=== PATIENT | female | born 1980 | race Caucasian/White ===

== ENCOUNTER 2019-12-14 14:05 | Emergency (ER) | payer OTHER ==
[2019-12-14 15:04] VITALS: BP 124/60; PULSE 72; RESP 18; TEMP 97.7
[2019-12-14] MEDS ORDERED: METOCLOPRAMIDE 10 MG TAB PO STA (15:50)
[2019-12-14] MEDS ORDERED: KETOROLAC 60 MG/2 ML VIAL IM STA (15:50)
[2019-12-14] MEDS ORDERED: diphenhydrAMINE 50 MG CAP PO STA (15:50)
--- NOTE | 2019-12-14 16:13 | ED ---
General Adult HPI - General Chief complaint: Headache Stated complaint: Cough and headache Time Seen by Provider: 12/14/19 15:00 Source: patient, family Mode of arrival: ambulatory Limitations: no limitations - History of Present Illness Initial comments: The patient is a 39-year-old female with past medical history of anxiety and depression who presents to the emergency department with reported headache, nonproductive cough and loss of appetite for the past 2 days. Patient reports that her headache is in the center for for head without radiation that is graded as a 6 out of 10. She has been taking Tylenol at home for her pain. She denies any visual changes. No unilateral numbness or weakness. Denies neck pain or stiffness. No fevers at home. No reported confusion from son at bedside. Denies photophobia. Patient denies hemoptysis. No shortness of breath or chest pain. Admits to nausea without vomiting. Patient's son tested positive for cocaine yesterday and therefore she is concerned that this may be the etiology of her symptoms. She is requesting testing at this time. Denies concern for . There are no other alleviating, precipitating or modifying factors - Related Data Home Medications Medication Instructions Recorded Confirmed Acetaminophen Tab [Tylenol] 650 mg PO Q4H PRN 12/14/19 12/14/19 Dm/Acetaminophen/Doxylamine [Vicks 30 ml PO Q6H PRN 12/14/19 12/14/19 Nyquil Cold-Flu Liquid] Phenylephrine/Dm/Acetaminop/GG 30 ml PO Q6H PRN 12/14/19 12/14/19 [Vicks Dayquil Severe Cold-Flu] Allergies Allergy/AdvReac Type Severity Reaction Status Date / Time No Known Allergies Allergy Verified 12/14/19 16:09 Review of Systems ROS Statement: Those systems with pertinent positive or pertinent negative responses have been documented in the HPI. ROS Other: All systems not noted in ROS Statement are negative. Past Medical History Past Medical History: No Reported History History of Any Multi-Drug Resistant Organisms: None Reported Past Surgical History: Section, Orthopedic Surgery, Tonsillectomy Past Psychological History: Anxiety, Depression Smoking Status: Current every day smoker Past Alcohol Use History: None Reported Past Drug Use History: Marijuana General Exam Limitations: no limitations General appearance: alert, in no apparent distress Head exam: Present: atraumatic, normocephalic, normal inspection Eye exam: Present: normal appearance, PERRL, EOMI. Absent: scleral icterus, conjunctival injection, periorbital swelling ENT exam: Present: normal exam, mucous membranes moist Neck exam: Present: normal inspection. Absent: tenderness, meningismus, lymphadenopathy Respiratory exam: Present: normal lung sounds bilaterally. Absent: respiratory distress, wheezes, rales, rhonchi, stridor Cardiovascular Exam: Present: regular rate, normal rhythm, normal heart sounds. Absent: systolic murmur, diastolic murmur, rubs, gallop, clicks GI/Abdominal exam: Present: soft, normal bowel sounds. Absent: distended, tenderness, guarding, rebound, rigid Extremities exam: Present: normal inspection, full ROM, normal capillary refill. Absent: tenderness, pedal edema, joint swelling, calf tenderness Back exam: Present: normal inspection Neurological exam: Present: alert, oriented X3, CN II-XII intact Psychiatric exam: Present: normal affect, normal mood Skin exam: Present: warm, dry, intact, normal color. Absent: rash Course Vital Signs 12/14/19 14:57 Temperature 97.7 F Pulse Rate 72 Respiratory 18 Rate Blood Pressure 124/60 O2 Sat by Pulse 97 Oximetry Medical Decision Making - Medical Decision Making Upon arrival the patient was placed in room 22. A thorough history and physical exam was performed. A portable chest x-rays performed. Patient is swabbed for covid. She is given 30 mg IM Toradol, 25 mg of Benadryl and 10 mg of Reglan. Patient has no meningeal signs. No increased work of breathing. Patient is stable for discharge home at this time. She is to follow up with her patient in 2-4 days for reevaluation. Return to the emergency room for any new or worsening symptoms. We will call her with any positive results. Patient was in agreement with the treatment plan and she was discharged in stable condition - Lab Data Lab Results 12/14/19 Range/Units 16:28 Coronavirus (PCR) Detected H (Not Detected) Disposition Clinical Impression: Headache, Cough Disposition: HOME SELF-CARE Condition: Stable Instructions (If sedation given, give patient instructions): Acute Headache (ED) Additional Instructions: Please follow-up with your primary care doctor in 2-4 days. We will call you with positive results. Return to the emergency room for any new or worsening symptoms Is patient prescribed a controlled substance at d/c from ED?: No Referrals: None,Stated [Primary Care Provider] - 1-2 days Time of Disposition: 16:17
--- NOTE | 2019-12-14 16:15 | XR ---
EXAMINATION TYPE: XR chest 1V portable DATE OF EXAM: 12/14/2019 Comparison: None Clinical History: 39-year-old female cough Findings: Large patient body habitus. Heart upper limits of normal in size. Aorta and pulmonary vasculature wit hin normal limits. No consolidation or pleural effusion seen. Impression: No acute cardiopulmonary process.
== END 2019-12-14 16:41 | disposition home or self-care (01) ==
LOC: EC 14:05
DX: R51 Headache (principal); R05 Cough; R11.0 Nausea; Z20.828 Contact with and (suspected) exposure to other viral communicable diseases; F17.200 Nicotine dependence, unspecified, uncomplicated
CPT/HCPCS: 99284; 96372; 71045; U0003; J1885

== ENCOUNTER 2020-03-30 20:20 | Emergency (ER) | payer OTHER ==
[2020-03-30 20:43] VITALS: BP 124/83; PULSE 98; RESP 18; TEMP 98.3
[2020-03-30 21:51] LABS: ALT 17 U/L (4-34); AST 21 U/L (14-36); African American GFR (CKD) >90 (>60 ml/min/1.73 sqM); Albumin 3.6 g/dL (3.5-5.0); Alkaline Phosphatase 64 U/L (38-126); Anion Gap 4 mmol/L; Blood Urea Nitrogen 20 mg/dL (7-17); Calcium 9.2 mg/dL (8.4-10.2); Carbon Dioxide 30 mmol/L (22-30); Chloride 105 mmol/L (98-107); Glucose 91 mg/dL (74-99); Non-African American GFR(CKD) 88 (>60 ml/min/1.73 sqM); Potassium 4.1 mmol/L (3.5-5.1); Sodium 139 mmol/L (137-145); Total Bilirubin 0.2 mg/dL (0.2-1.3); Total Protein 6.6 g/dL (6.3-8.2)
[2020-03-30 21:58] LABS: Basophils # (A) 0.1 k/uL (0-0.2); Basophils % (A) 1 %; Eosinophils # (A) 0.5 k/uL (0-0.7); Eosinophils % (A) 5 %; HCT 41.5 % (34.0-46.0); Hypochromasia Slight; Lymphocytes % (A) 18 %; MCH 27.4 pg (25.0-35.0); MCHC 31.4 g/dL (31.0-37.0); MCV 87.3 fL (80.0-100.0); Mean Platelet Volume 6.7; Monocytes # (A) 0.6 k/uL (0-1.0); Monocytes % (A) 5 %; Neutrophils # (A) 7.6 k/uL (1.3-7.7); Neutrophils % (A) 69 %; Platelet Count 382 k/uL (150-450); RBC 4.75 m/uL (3.80-5.40); RDW 14.9 % (11.5-15.5)
--- NOTE | 2020-03-30 22:03 | ED ---
ENT HPI - General Chief complaint: ENT Stated complaint: Rash on head, back pain Time Seen by Provider: 03/30/20 20:45 Source: patient Mode of arrival: ambulatory Limitations: no limitations - History of Present Illness Initial comments: 39 year old female presenting today for chief complaint of itchy scalp bumps on neck. Patient states that she has had itchy scalp for over a week she states she is alsothe back of her neck. She states they're not red. She denies fevers, night sweats, weight loss, denies sore throat or dental pain. Denies additional complaints. patient states that she cannot tolerate the scalp itching anymore. Patient itzel additional complaints. Upon arrival patient appears well nontoxic in no acute distress. - Related Data Home Medications Medication Instructions Recorded Confirmed Acetaminophen Tab [Tylenol] 650 mg PO Q4H PRN 12/14/19 12/14/19 Dm/Acetaminophen/Doxylamine [Vicks 30 ml PO Q6H PRN 12/14/19 12/14/19 Nyquil Cold-Flu Liquid] Phenylephrine/Dm/Acetaminop/GG 30 ml PO Q6H PRN 12/14/19 12/14/19 [Vicks Dayquil Severe Cold-Flu] Previous Rx's Medication Instructions Recorded Permethrin [Nix] 60 ml TP ONCE 1 Days #60 ml 03/30/20 Allergies Allergy/AdvReac Type Severity Reaction Status Date / Time No Known Allergies Allergy Verified 03/30/20 20:43 Review of Systems ROS Statement: Those systems with pertinent positive or pertinent negative responses have been documented in the HPI. ROS Other: All systems not noted in ROS Statement are negative. Past Medical History Past Medical History: No Reported History History of Any Multi-Drug Resistant Organisms: None Reported Past Surgical History: Section, Orthopedic Surgery, Tonsillectomy Past Psychological History: Anxiety, Depression, PTSD Smoking Status: Current every day smoker Past Alcohol Use History: None Reported Past Drug Use History: Marijuana General Exam - General Exam Comments Initial Comments: General: The patient is awake and alert, in no distress Eye: +3 mm pupils are equal, round and reactive to light, extra-ocular movements are intact. No nystagmus. There is normal conjunctiva bilaterally. No signs of icterus. Ears, nose, mouth and throat: There are moist mucous membranes and no oral lesions. Neck: The neck is supple, there is no tenderness or JVD. Palpable enlarged posterior cerivcal chain lymphadenopathy Cardiovascular: There is a regular rate and rhythm. No murmur, rub or gallop is appreciated. Respiratory: Lungs are clear to auscultation, respirations are non-labored, breath sounds are equal. No wheezes, stridor, rales, or rhonchi. Gastrointestinal: Soft, non-distended, non-tender abdomen without masses or organomegaly noted. There is no rebound or guarding present. Musculoskeletal: Normal ROM, no tenderness. Strength 5/5. Sensation intact. Radial pulses equal bilaterally 2+. Neurological: A&O x 3. CN II-XII intact grossly, There are no obvious motor or sensory deficits. Coordination appears grossly intact. Speech is normal. Skin: Skin is warm and dry and no rashes or lesions are noted. Infestations of lice with nits present on exam, extensive Psychiatric: Cooperative, appropriate mood & affect, normal judgment. Limitations: no limitations Course Vital Signs 03/30/20 20:40 Temperature 98.3 F Pulse Rate 98 Respiratory 18 Rate Blood Pressure 124/83 O2 Sat by Pulse 95 Oximetry Medical Decision Making - Medical Decision Making Mild leukocytosis. Significant infestation of lice. Some excoriation noted. No cellulitic process appreciated. Oral exam unremarkable. I feel lymphadenopathy most likely secondary to the infestation but did recommend patient f/u with PCP outpatient for monitoring of lymph nodes. Patient verbalized understanding, case discussed with Dr. Mercer who is agreeable to care plan and discharge. - Lab Data Result diagrams: 03/30/20 21:22 03/30/20 21:22 Lab Results 03/30/20 03/30/20 Range/Units 21:22 21:22 WBC 11.0 H (3.8-10.6) k/uL RBC 4.75 (3.80-5.40) m/uL Hgb 13.0 (11.4-16.0) gm/dL Hct 41.5 (34.0-46.0) % MCV 87.3 (80.0-100.0) fL MCH 27.4 (25.0-35.0) pg MCHC 31.4 (31.0-37.0) g/dL RDW 14.9 (11.5-15.5) % Plt Count 382 (150-450) k/uL Neutrophils % 69 % Lymphocytes % 18 % Monocytes % 5 % Eosinophils % 5 % Basophils % 1 % Neutrophils # 7.6 (1.3-7.7) k/uL Lymphocytes # 2.0 (1.0-4.8) k/uL Monocytes # 0.6 (0-1.0) k/uL Eosinophils # 0.5 (0-0.7) k/uL Basophils # 0.1 (0-0.2) k/uL Hypochromasia Slight Sodium 139 (137-145) mmol/L Potassium 4.1 (3.5-5.1) mmol/L Chloride 105 (98-107) mmol/L Carbon Dioxide 30 (22-30) mmol/L Anion Gap 4 mmol/L BUN 20 H (7-17) mg/dL Creatinine 0.83 (0.52-1.04) mg/dL Est GFR (CKD-EPI)AfAm >90 (>60 ml/min/1.73 sqM) Est GFR (CKD-EPI)NonAf 88 (>60 ml/min/1.73 sqM) Glucose 91 (74-99) mg/dL Calcium 9.2 (8.4-10.2) mg/dL Total Bilirubin 0.2 (0.2-1.3) mg/dL AST 21 (14-36) U/L ALT 17 (4-34) U/L Alkaline Phosphatase 64 (38-126) U/L Total Protein 6.6 (6.3-8.2) g/dL Albumin 3.6 (3.5-5.0) g/dL Disposition Clinical Impression: Lice infestation, Lymphadenopathy Disposition: HOME SELF-CARE Condition: Good Instructions (If sedation given, give patient instructions): Pediculosis (ED), Lymphadenopathy (ED) Additional Instructions: Please use medication as discussed. Please follow-up with family doctor in the next 2 days for enlarged lymph nodes.. Please return to emergency room if the symptoms increase or worsen or for any other concerns. Prescriptions: Permethrin [Nix] 60 ml TP ONCE 1 Days #60 ml Is patient prescribed a controlled substance at d/c from ED?: No Referrals: None,Stated [Primary Care Provider] - 1-[address] [facility] - [facility]-2 days Time of Disposition: 22:03
== END 2020-03-30 22:21 | disposition home or self-care (01) ==
LOC: EC 20:20
DX: B85.1 Pediculosis due to Pediculus humanus corporis (principal); R59.1 Generalized enlarged lymph nodes; F17.200 Nicotine dependence, unspecified, uncomplicated
CPT/HCPCS: 36415; 80053; 85025; 99283

== ENCOUNTER 2020-04-18 17:53 | Emergency (ER) | payer OTHER ==
[2020-04-18 17:57] VITALS: BP 116/80; PULSE 90; RESP 18; TEMP 98
[2020-04-18] MEDS ORDERED: SULFAMETH-TMP DS STARTER PACK 2 TAB BTL PO STA (19:01)
[2020-04-18] MEDS ORDERED: ACET/COD 300 MG/30 MG STARTER PACK 6 TAB BTL PO STA (19:01)
--- NOTE | 2020-04-18 19:02 | ED ---
General Adult HPI - General Chief complaint: Skin/Abscess/Foreign Body Stated complaint: Abcess on stomach Time Seen by Provider: 04/18/20 18:40 Source: patient, RN notes reviewed, old records reviewed Mode of arrival: ambulatory Limitations: no limitations - History of Present Illness Initial comments: 39-year-old female presents emergency department today for evaluation she complaint of abscess over the lower left abdomen. She reports noticed this area for week. She was related to her clothes rubbing on her. Patient denies any fevers or chills. She reports areas were red, warm and tender. She denies history of MRSA. - Related Data Home Medications Medication Instructions Recorded Confirmed Acetaminophen Tab [Tylenol] 650 mg PO Q4H PRN 12/14/19 12/14/19 Dm/Acetaminophen/Doxylamine [Vicks 30 ml PO Q6H PRN 12/14/19 12/14/19 Nyquil Cold-Flu Liquid] Phenylephrine/Dm/Acetaminop/GG 30 ml PO Q6H PRN 12/14/19 12/14/19 [Vicks Dayquil Severe Cold-Flu] Previous Rx's Medication Instructions Recorded Permethrin [Nix] 60 ml TP ONCE 1 Days #60 ml 03/30/20 Sulfamethox-Tmp 800-160Mg [Bactrim 1 tab PO Q12HR #20 tab 04/18/20 DS 800-160 mg] Allergies Allergy/AdvReac Type Severity Reaction Status Date / Time No Known Allergies Allergy Verified 04/18/20 17:57 Review of Systems ROS Statement: Those systems with pertinent positive or pertinent negative responses have been documented in the HPI. ROS Other: All systems not noted in ROS Statement are negative. Past Medical History Past Medical History: No Reported History History of Any Multi-Drug Resistant Organisms: None Reported Past Surgical History: Section, Orthopedic Surgery, Tonsillectomy Past Psychological History: Anxiety, Depression, PTSD Smoking Status: Current every day smoker Past Alcohol Use History: None Reported Past Drug Use History: Marijuana General Exam - General Exam Comments Initial Comments: 39-year-old female. Alert and oriented 3. No distress Limitations: no limitations General appearance: alert, in no apparent distress Head exam: Present: atraumatic, normocephalic, normal inspection Eye exam: Present: normal appearance, PERRL, EOMI. Absent: scleral icterus, conjunctival injection, periorbital swelling ENT exam: Present: normal exam, mucous membranes moist Neck exam: Present: normal inspection. Absent: tenderness, meningismus, lymphadenopathy Respiratory exam: Present: normal lung sounds bilaterally. Absent: respiratory distress, wheezes, rales, rhonchi, stridor Cardiovascular Exam: Present: regular rate, normal rhythm, normal heart sounds. Absent: systolic murmur, diastolic murmur, rubs, gallop, clicks GI/Abdominal exam: Present: soft, normal bowel sounds, other (Is protuberant abdomen. His evidence of an area of erythema and abscess on the left lower quadrant of the abdomen. There is superficial.). Absent: distended, tenderness, guarding, rebound, rigid Extremities exam: Present: normal inspection, full ROM, normal capillary refill. Absent: tenderness, pedal edema, joint swelling, calf tenderness Back exam: Present: normal inspection Neurological exam: Present: alert, oriented X3, CN II-XII intact Psychiatric exam: Present: normal affect, normal mood Skin exam: Present: warm, dry, intact, normal color. Absent: rash Course Vital Signs 04/18/20 17:55 Temperature 98.0 F Pulse Rate 90 Respiratory 18 Rate Blood Pressure 116/80 O2 Sat by Pulse 99 Oximetry Procedures - Incision & Drainage Consent Obtained: verbal consent Indication: Abscess Site: abdomen (Lower quadrant) Size (cm): 1 Anesthetic Used: lidocaine 1% I&D Cleaning Method: Alcohol Wipe Sterile Field Used?: Yes Scalpel Used: #11 I&D Drainage Obtained: Pus, Blood Packing: Iodoform Culture Obtained?: Yes Patient Tolerated Procedure: well, no complications Medical Decision Making - Medical Decision Making 39-year-old female Patient returns today for complaints of abscess of her left abdomen. She had incision and drainage culture obtained. Presently 3 mL of fluid was removed. Discussed putting the Patient on Bactrim and discussed with area of redness or swelling worsens return to the ER for reevaluation. Patient tolerated the procedure well. Disposition Clinical Impression: Abdominal wall abscess Disposition: HOME SELF-CARE Condition: Good Instructions (If sedation given, give patient instructions): Abscess (ED) Additional Instructions: Please use medication as discussed. Please follow up with family doctor if symptoms have not improved over the next two days. Please return to the emergency room if your symptoms increase or worsen or for any other concerns. Prescriptions: Sulfamethox-Tmp 800-160Mg [Bactrim DS 800-160 mg] 1 tab PO Q12HR #20 tab Is patient prescribed a controlled substance at d/c from ED?: No Referrals: None,Stated [Primary Care Provider] - 1-2 days Time of Disposition: 19:02
== END 2020-04-18 19:09 | disposition home or self-care (01) ==
LOC: EC 17:53
DX: L02.211 Cutaneous abscess of abdominal wall (principal); F17.200 Nicotine dependence, unspecified, uncomplicated
CPT/HCPCS: 10060; 87070; 87077; 87186; 87205; 99284

== ENCOUNTER 2020-11-07 16:47 | Emergency (ER) | payer OTHER ==
[2020-11-07] MEDS ORDERED: KETOROLAC 15 MG/ML 1 ML VIAL IVP STA (17:32)
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
[2020-11-07 18:28] LABS: Basophils % (A) 0 %; Eosinophils # (A) 0.2 k/uL (0-0.7); Eosinophils % (A) 2 %; HCT 40.9 % (34.0-46.0); HGB 13.7 gm/dL (11.4-16.0); Lymphocytes # (A) 1.9 k/uL (1.0-4.8); Lymphocytes % (A) 16 %; MCH 28.5 pg (25.0-35.0); MCHC 33.5 g/dL (31.0-37.0); MCV 85.2 fL (80.0-100.0); Monocytes # (A) 0.5 k/uL (0-1.0); Monocytes % (A) 5 %; Neutrophils # (A) 8.9 k/uL (1.3-7.7); Neutrophils % (A) 76 %; Platelet Count 333 k/uL (150-450); RBC 4.81 m/uL (3.80-5.40); RDW 13.2 % (11.5-15.5); WBC 11.8 k/uL (3.8-10.6)
[2020-11-07 18:39] LABS: ALT 23 U/L (4-34); AST 41 U/L (14-36); African American GFR (CKD) >90 (>60 ml/min/1.73 sqM); Albumin 4.1 g/dL (3.5-5.0); Alkaline Phosphatase 76 U/L (38-126); Anion Gap 6 mmol/L; Blood Urea Nitrogen 15 mg/dL (7-17); Calcium 9.4 mg/dL (8.4-10.2); Carbon Dioxide 28 mmol/L (22-30); Chloride 105 mmol/L (98-107); Glucose 82 mg/dL (74-99); Lipase 94 U/L (23-300); Non-African American GFR(CKD) >90 (>60 ml/min/1.73 sqM); Sodium 139 mmol/L (137-145); Total Bilirubin 0.7 mg/dL (0.2-1.3); Total Protein 7.4 g/dL (6.3-8.2)
[2020-11-07 18:43] LABS: Potassium 4.8 mmol/L (3.5-5.1)
--- NOTE | 2020-11-07 18:44 | XR ---
EXAMINATION TYPE: XR chest 2V DATE OF EXAM: 11/07/2020 COMPARISON: 12/14/2019. HISTORY: Sternal pain and cough. TECHNIQUE: Frontal and lateral views of the chest are obtained. FINDINGS: There is no focal air space opacity, pleural effusion, or pneumothorax seen. The cardiac silhouette size is within normal limits. The osseous structures are intact. IMPRESSION: No acute cardiopulmonary process.
[2020-11-07 18:45] LABS: INR 0.9 (<1.2); Partial Thromboplastin Time 22.8 sec (22.0-30.0); Prothrombin Time 9.9 sec (9.0-12.0)
[2020-11-07 19:03] LABS: D-Dimer 1.07 mg/L FEU (<0.60)
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
[2020-11-07 20:09] VITALS: BP 165/80; PULSE 100; RESP 17; TEMP 97.5
== END 2020-11-07 20:10 | disposition home or self-care (01) ==
LOC: EC 16:47
DX: S20.219A Contusion of unspecified front wall of thorax, initial encounter (principal); F41.9 Anxiety disorder, unspecified; F32.9 Major depressive disorder, single episode, unspecified; F12.90 Cannabis use, unspecified, uncomplicated; F17.200 Nicotine dependence, unspecified, uncomplicated; Z79.1 Long term (current) use of non-steroidal anti-inflammatories (NSAID); X58.XXXA Exposure to other specified factors, initial encounter; Y93.I9 Activity, other involving external motion
CPT/HCPCS: 36415; 93005; 85379; 80053; 83690; 83735; 84484; 85025; 85610; 85730; 71120; 71046; 71275; 99285; 96374; J1885; Q9967

== ENCOUNTER 2024-01-04 04:55 | Inpatient (IN) | payer OTHER ==
--- NOTE | 2024-01-04 05:42 | ED ---
General Adult HPI - General Chief complaint: Psychiatric Symptoms Stated complaint: Suicidal ideations Time Seen by Provider: 01/04/24 04:59 Source: patient Mode of arrival: ambulatory Limitations: no limitations - History of Present Illness Initial comments: Dictation was produced using [employer] dictation software. please excuse any grammatical, word or spelling errors. Chief Complaint: 43-year-old homeless female presents emergency department for suicidal ideation History of Present Illness: Patient is a 43-year-old homeless female states that she is here today for feeling suicidal. She has history of illicit drug use. States that she has been depressed because of the way her life has been going recently. She states that she wishes she could end it all. Patient denies any homicidal ideation. She does not have any plan. The ROS documented in this emergency department record has been reviewed and confirmed by me. Those systems with pertinent positive or negative responses have been documented in the HPI. All other systems are other negative and/or noncontributory. - Related Data Previous Rx's Medication Instructions Recorded Escitalopram [Lexapro] 10 mg PO HS 30 Days #30 tab 01/08/24 Nicotine Gum (Polacrilex) 2 mg BUCCAL Q4HR PRN 30 Days #180 01/08/24 [Nicorette] pieceofgum lamoTRIgine [LaMICtal] 25 mg PO HS 30 Days #30 tab 01/08/24 traZODone HCL [Desyrel] 25 mg PO HS PRN 30 Days #15 tab 01/08/24 Allergies Allergy/AdvReac Type Severity Reaction Status Date / Time No Known Allergies Allergy Verified 01/04/24 09:47 Review of Systems ROS Statement: Those systems with pertinent positive or pertinent negative responses have been documented in the HPI. ROS Other: All systems not noted in ROS Statement are negative. Past Medical History Past Medical History: No Reported History History of Any Multi-Drug Resistant Organisms: None Reported Past Surgical History: Section, Orthopedic Surgery, Tonsillectomy Past Psychological History: Anxiety, Depression, PTSD Smoking Status: Current every day smoker Past Drug Use History: Marijuana, Methamphetamine - Past Family History Mother Family Medical History: Cancer General Exam - General Exam Comments Initial Comments: General: Well-appearing, nontoxic, no acute distress. Head: Normocephalic, atraumatic Eyes: PERRLA, EOMI ENT: Airway patent Chest: Nonlabored breathing Skin: No visual rash, normal skin tone Neuro: Alert and oriented 3 Musculoskeletal: No gross abnormalities Limitations: no limitations Course Vital Signs 01/04/24 01/04/24 04:56 15:24 Temperature 98 F Pulse Rate 78 66 Respiratory 18 16 Rate Blood Pressure 149/81 120/76 O2 Sat by Pulse 96 98 Oximetry Medical Decision Making - Medical Decision Making Was pt. sent in by a medical professional or institution (, PA, LINE OUT MAN, urgent care, hospital, or halfway...) When possible be specific @ -No Did you speak to anyone other than the patient for history (EMS, parent, family, police, friend...)? What history was obtained from this source @ -No Did you review nursing and triage notes (agree or disagree)? Why? @ -I reviewed and agree with nursing and triage notes Were old charts reviewed (outside hosp., previous admission, EMS record, old EKG, old radiological studies, urgent care reports/EKG's, halfway records)? Report findings @ -No old charts were reviewed Differential Diagnosis (chest pain, altered mental status, abdominal pain women, abdominal pain men, vaginal bleeding, musculoskeletal, weakness, fever, dyspnea, syncope, headache, dizziness, GI bleed, back pain, seizure, CVA, palpatations, mental health)? @ -Differential Mental Health: Depression, anxiety, bipolar, psychosis, schizophrenia, borderline personality, situational depression, adjustment disorder, behavioral disorder, brain tumor, malingering, substance abuse, encephalopathy, medication reaction, dementia, hypothyroidism, degenerative neurologic disorder, lupus.... This is not meant to be all-inclusive list EKG interpreted by me (3pts min.). @ -None done X-rays interpreted by me (1pt min.). @ -None done CT interpreted by me (1pt min.). @ -None done U/S interpreted by me (1pt. min.). @ -None done What testing was considered but not performed or refused? (CT, X-rays, U/S, labs)? Why? @ -None What meds were considered but not given or refused? Why? @ -None Was smoking cessation discussed for >3mins.? @ -No Were there social determinants of health that impacted care today? How? (Homelessness, low income, unemployed, alcoholism, drug addiction, transportation, low edu. Level, literacy, decrease access to med. care, alf, rehab)? @ -No Was there de-escalation of care discussed even if they declined (Discuss DNR or withdrawal of care, Hospice)? DNR status @ -No What co-morbidities impacted this encounter? (DM, HTN, Smoking, COPD, CAD, Cancer, CVA, ARF, Chemo, Hep., AIDS, mental health diagnosis, sleep apnea, morbid obesity)? @ -None Was patient admitted / discharged? Hospital course, mention meds given and route, prescriptions, significant lab abnormalities, going to OR and other pertinent info. @ -43-year-old female presents with depression. She did make some suicidal comments. Vital signs stable. Patient has no physical complaints. Patient medically cleared for EPS evaluation Patient eval by EPS will be admitted to mental health unit. Did you discuss the management of the patient with other professionals (professionals i.e. , PA, LINE OUT MAN, lab, RT, psych nurse, drug abuse social worker, wildlife biology internship, teacher, commanding officer homicide squad, pillowcase folder)? Give summary @ -No Was critical care preformed (if so, how long)? @ -No Undiagnosed new problem with uncertain prognosis? @ -No Drug Therapy requiring intensive monitoring for toxicity (Heparin, Nitro, Insuli n, Cardizem)? @ -No Were any procedures done? @ -No Diagnosis/symptom? @ -Suicidal ideation Acute, or Chronic, or Acute on Chronic? @ -Default Uncomplicated (without systemic symptoms) or Complicated (systemic symptoms)? @ -Default Side effects of treatment? @ -None Exacerbation, Progression, or Severe Exacerbation] @ -No Poses a threat to life or bodily function? @ -yes - Lab Data Result diagrams: 01/05/24 09:45 01/05/24 09:45 Lab Results 01/04/24 01/04/24 01/04/24 Range/Units 05:50 05:50 05:50 Urine Color Yellow Urine Appearance Turbid H (Clear) Urine pH 5.5 (5.0-8.0) Ur Specific [place] 1.033 (1.001-1.035) Urine Protein Trace H (Negative) Urine Glucose (UA) Negative (Negative) Urine Ketones Negative (Negative) Urine Blood Negative (Negative) Urine Nitrite Negative (Negative) Urine Bilirubin Negative (Negative) Urine Urobilinogen <2.0 (<2.0) mg/dL Ur Leukocyte Esterase Small H (Negative) Urine RBC 1 (0-5) /hpf Amorphous Sediment Moderate H (None) /hpf Urine Mucus Few H (None) /hpf Urine HCG, Qual Not Detected (Not Detectd) Urine Opiates Screen Not Detected (NotDetected) Ur Oxycodone Screen Not Detected (NotDetected) Urine Methadone Screen Not Detected (NotDetected) Ur Barbiturates Screen Not Detected (NotDetected) U Tricyclic Antidepress Not Detected (NotDetected) Ur Phencyclidine Scrn Not Detected (NotDetected) Ur Amphetamines Screen Detected H (NotDetected) U Methamphetamines Scrn Detected H (NotDetected) U Benzodiazepines Scrn Not Detected (NotDetected) Urine Cocaine Screen Not Detected (NotDetected) U Marijuana (THC) Screen Not Detected (NotDetected) SARS-CoV-2 (PCR) (Not Detectd) 01/04/24 Range/Units 13:09 Urine Color Urine Appearance (Clear) Urine pH (5.0-8.0) Ur Specific [place] (1.001-1.035) Urine Protein (Negative) Urine Glucose (UA) (Negative) Urine Ketones (Negative) Urine Blood (Negative) Urine Nitrite (Negative) Urine Bilirubin (Negative) Urine Urobilinogen (<2.0) mg/dL Ur Leukocyte Esterase (Negative) Urine RBC (0-5) /hpf Amorphous Sediment (None) /hpf Urine Mucus (None) /hpf Urine HCG, Qual (Not Detectd) Urine Opiates Screen (NotDetected) Ur Oxycodone Screen (NotDetected) Urine Methadone Screen (NotDetected) Ur Barbiturates Screen (NotDetected) U Tricyclic Antidepress (NotDetected) Ur Phencyclidine Scrn (NotDetected) Ur Amphetamines Screen (NotDetected) U Methamphetamines Scrn (NotDetected) U Benzodiazepines Scrn (NotDetected) Urine Cocaine Screen (NotDetected) U Marijuana (THC) Screen (NotDetected) SARS-CoV-2 (PCR) Not Detected (Not Detectd) Disposition Clinical Impression: Suicidal ideation Disposition: ADMITTED IP TO THIS HOSP Condition: Stable
[2024-01-04 08:15] LABS: Phencyclidine Screen,Urine Not Detected (NotDetected); Urn Cannabinoid Scrn Not Detected (NotDetected)
[2024-01-04 08:16] LABS: Amphetamine Screen,Urine Detected (NotDetected); Barbiturate Screen,Urine Not Detected (NotDetected); Benzodiazepines Screen,Urine Not Detected (NotDetected); Cocaine Screen,Urine Not Detected (NotDetected); Methadone Screen, Urine Not Detected (NotDetected); Opiate Screen,Urine Not Detected (NotDetected); Oxycodone Screen, Urine Not Detected (NotDetected); Tricyclic Antidepressant,Urine Not Detected (NotDetected)
[2024-01-04] MEDS ORDERED: LORazepam 2 MG/ML INJ IM PRN (15:18)
[2024-01-04] MEDS ORDERED: HALOPERIDOL LACTATE 5 MG/ML 1 ML VIAL IM PRN (15:18)
[2024-01-04] MEDS ORDERED: ACETAMINOPHEN TAB 325 MG TAB PO PRN (15:18)
[2024-01-04] MEDS ORDERED: MAG HYDROX/AL HYDROX/SIMETH 355 ML BOTTLE PO PRN (15:18)
[2024-01-04] MEDS ORDERED: traZODone HCL 50 MG TAB PO PRN (15:18)
[2024-01-04] MEDS ORDERED: LORazepam 1 MG TAB PO PRN (15:18)
[2024-01-04] MEDS ORDERED: haloperidoL 5 MG TAB PO PRN (15:18)
[2024-01-04] MEDS ORDERED: MAGNESIUM HYDROXIDE 2,400 MG/30 ML CUP PO PRN (15:18)
[2024-01-04 16:06] LABS: Amorphous Sediment,Urine Moderate /hpf; Appearance,Urine Turbid (Clear); Bilirubin,Urine Negative (Negative); Blood,Urine Negative (Negative); Color,Urine Yellow; Glucose,Urine (UA) Negative (Negative); Ketones,Urine Negative (Negative); Leukocyte Esterase,Urine Small (Negative); Mucus,Urine Few /hpf; Nitrite,Urine Negative (Negative); PH, Urine 5.5 (5.0-8.0); Protein,Urine Trace (Negative); RBC,Urine 1 /hpf (0-5); Specific Gravity,Urine 1.033 (1.001-1.035); Urobilinogen,Urine <2.0 mg/dL (<2.0)
[2024-01-04 16:57] VITALS: RESP 14
[2024-01-04] MEDS: NICOTINE 14MG/24HR PATCH TRANSDERM SCH (18:51)
[2024-01-04] MEDS: IBUPROFEN 600 MG TAB PO PRN (22:32)
[2024-01-05] MEDS ORDERED: ZINC OXIDE PASTE (Z-GUARD) 1 APPLIC TOPICAL PRN (00:28)
--- NOTE | 2024-01-05 03:12 | P.CONS ---
History of Present Illness - Reason for Consult Consult date: 01/05/24 - History of Present Illness The patient is a 43-year-old female with a PMH of polysubstance abuse, anxiety, depression, and PTSD who had presented to the emergency room with complaints of depression and suicidal ideation. The patient was admitted to the mental health unit where she was seen and evaluated accompanied by mental health unit RN. The patient reports that she has been experiencing homelessness and that she is currently staying on a park bench and sleeping wherever she can. She reports some irritation under her left breast. She denied any additional complaints. Denied experiencing chest discomfort, shortness breath, fever, chills, cough, nausea, vomiting, abdominal pain, diarrhea. Patient reports ongoing methamphetamine use, most recently 3 days ago. Also reports smoking 5 cigarettes/day. Denied any alcohol use. Review of systems: Pertinent positives and negatives as discussed in HPI, a complete review of systems was performed and all other systems are negative. Physical examination: General: non toxic, no distress, appears at stated age, normal weight Derm: Mild erythema under left breast, no unusual ecchymoses, warm, dry Head: atraumatic, normocephalic, symmetric Eyes: EOMI, no lid lag, anicteric sclera ENT: Nose and ears atraumatic, no thrush, no pharyngeal erythema Neck: trachea midline, supple Mouth: no lip lesion, mucus membranes moist Cardiovascular: S1S2 reg, no murmur, no edema Lungs: CTA bilateral, no rhonchi, no rales , no accessory muscle use Abdominal: soft, nontender to palpation, no guarding Ext: no gross muscle atrophy, no contractures, Neuro: No gross focal neuro deficits noted Psych: Alert, oriented, appropriate affect Assessment: Left breast skin fold irritation Methamphetamine abuse Depression and suicidal ideation Imaging: None performed Data Review: Reviewed with urine toxicology positive for methamphetamines and UA positive for small leukocyte esterase, few mucus cells, and trace protein Plan: Topical barrier ointment ordered Defer management of depression and suicidal ideation to the primary psychiatry service Strongly advised on the importance of cessation from substance use Thank you for allowing us to participate in the care of this patient. We will follow peripherally. Do not hesitate to contact us with questions. Someone can be reached from the [facility] hospitalist group at all hours of the day at [phone]. Past Medical History Past Medical History: No Reported History Additional Past Medical History / Comment(s): Staph in 2019 History of Any Multi-Drug Resistant Organisms: Other MDRO Past Surgical History: Section, Hysterectomy, Orthopedic Surgery, Tonsillectomy Past Anesthesia/Blood Transfusion Reactions: No Reported Reaction Past Psychological History: Anxiety, Bipolar, Depression, PTSD Smoking Status: Current every day smoker Past Alcohol Use History: None Reported Past Drug Use History: Marijuana, Methamphetamine - Past Family History Mother Family Medical History: Cancer Medications and Allergies Home Medications Medication Instructions Recorded Confirmed Type No Known Home Medications 01/04/24 01/04/24 History Allergies Allergy/AdvReac Type Severity Reaction Status Date / Time No Known Allergies Allergy Verified 01/04/24 09:47 Physical Exam Vitals: Vital Signs Temp Pulse Pulse Resp BP Pulse Ox 01/04/24 15:43 97.6 F 65 14 01/04/24 15:24 66 16 120/76 98 01/04/24 04:56 98 F 78 18 149/81 96 Intake and Output 01/04/24 01/04/24 01/05/24 14:59 22:59 06:59 Other: Weight 115.3 kg Results Labs: Abnormal Lab Results - Last 24 Hours (Table) 01/04/24 01/04/24 Range/Units 05:50 05:50 Urine Appearance Turbid H (Clear) Urine Protein Trace H (Negative) Ur Leukocyte Esterase Small H (Negative) Amorphous Sediment Moderate H (None) /hpf Urine Mucus Few H (None) /hpf Ur Amphetamines Screen Detected H (NotDetected) U Methamphetamines Scrn Detected H (NotDetected)
[2024-01-05 10:23] LABS: ALT 65 U/L (4-34); AST 53 U/L (14-36); African American GFR (CKD) >90 (>60 ml/min/1.73 sqM); Albumin 3.1 g/dL (3.5-5.0); Alkaline Phosphatase 65 U/L (38-126); Anion Gap 3 mmol/L; Blood Urea Nitrogen 20 mg/dL (7-17); Calcium 8.9 mg/dL (8.4-10.2); Carbon Dioxide 25 mmol/L (22-30); Chloride 110 mmol/L (98-107); Glucose 96 mg/dL (74-99); Non-African American GFR(CKD) >90 (>60 ml/min/1.73 sqM); Potassium 4.5 mmol/L (3.5-5.1); Sodium 138 mmol/L (137-145); Total Bilirubin 0.6 mg/dL (0.2-1.3); Total Protein 5.5 g/dL (6.3-8.2)
[2024-01-05 10:35] LABS: Basophils % (A) 1 %; Eosinophils # (A) 0.2 k/uL (0-0.7); Eosinophils % (A) 3 %; HCT 37.5 % (34.0-46.0); Lymphocytes # (A) 1.7 k/uL (1.0-4.8); Lymphocytes % (A) 28 %; MCH 30.3 pg (25.0-35.0); MCHC 31.9 g/dL (31.0-37.0); Mean Platelet Volume 7.6; Monocytes # (A) 0.3 k/uL (0-1.0); Monocytes % (A) 6 %; Neutrophils # (A) 3.5 k/uL (1.3-7.7); Neutrophils % (A) 59 %; Platelet Count 270 k/uL (150-450); RBC 3.94 m/uL (3.80-5.40); RDW 12.9 % (11.5-15.5)
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
[2024-01-05] MEDS: ESCITALOPRAM 5 MG TAB PO SCH (14:04)
[2024-01-05] MEDS: lamoTRIgine 25 MG TAB PO SCH (14:04)
[2024-01-05 16:46] LABS: Chol/HDL Ratio 3.86 Ratio; LDL Cholesterol,Calculated 118.1 mg/dL (0.0-131.0)
[2024-01-05] MEDS: traZODone HCL 50 MG TAB PO SCH (21:35)
[2024-01-06] MEDS: NICOTINE GUM (POLACRILEX) 2 MG GUM BUCCAL PRN (09:06)
--- NOTE | 2024-01-06 09:45 | P.PN ---
Progress Note - Text Progress Note Date: 01/06/24 Interval History: Patient was seen today wandering the hallways and was agreeable to speak to duglas marsh in the office. patient claims that her emotions are "a bit better" today. She claims that her mood and anxiety are mildly improving. We spoke about increasing her Lexapro for tomorrow which she is okay with. States that she did sleep okay with the trazodone however did state that it took her a few hours initiate sleep. States that she does not like her roommate and wants a room switch. She claims that he did hear that her son did find a place to stay as he was also homeless. She claims that she is not having any suicidal homicidal ideations today, denies any auditory or visual hallucinations. MENTAL STATUS EXAM: General Appearance: Patient appears to be stated age is alert, directable, and attempts to cooperate]. Patient appears to have fair hygiene and grooming. Tattoos, dressed casually. Hair in a towel. Behavior: Patient is seated without any agitated behavior. Improving mildly Speech: Patient's speech is [fluent and nonpressured. tangential Mood/Affect: Patient reports their mood is depressed, improving mildly, affect is congruent and constricted. Suicidality/Homicidality: Patient denies having any homicidal ideation intent or plan. Denies any suicidal ideations intent or plan Perceptions: Patient denies any visual hallucinations and denies any auditory hallucinations Though content/process: [There is no evidence of any delusional thought content and thought process is tangential Memory and concentration: AOX3, grossly intact for the purposes of this session. Judgment and insight: Poor, improving mildly IMPRESSIONS: mood disorder, unspecified rule out bipolar depression methamphetamine abuse Nicotine dependance homelessness PLAN: -Patient is admitted under voluntary status to MHU for stabilization of psychiatric symptoms and safety. -Medications : Lamictal 25mg daily for mood stabilization, Patient was informed to check for a rash, and to let nursing staff or technical publications writer know if she notices this. Trazodone 25mg qhs for sleep, increase Lexapro 10 mg daily for depression/anxiety -Ativan and Haldol PRN for agitation/aggression -NRT - nicotine patch -SW on board for discharge planning. Encourage patient to participate in groups to work on coping skills. Patient currently refusing rehab at this time, possible d/c by the end of the week if patient is improving.
[2024-01-07] MEDS: ESCITALOPRAM 10 MG TAB PO SCH ×2 (09:16→21:17)
--- NOTE | 2024-01-07 10:26 | P.PN ---
Progress Note - Text Progress Note Date: 01/07/24 Interval History: Patient was seen today in her room, and was agreeable to speak to marketing copywriter in the office. She states that she is a bit tired today. She claims that her mood and anxiety are mildly improving, she states it's still there, but she is trying to control it. She claims she is trying to keep her emotions down, and she is trying to be nicer. States that she did sleep okay with the switch in her room, and slept better last night. She does state that she does not know how to describe the feeling she is having, marketing copywriter expressed to her about sobriety, and the feelings of coming off of methamphetamines. [employer] Teacher asked patient again about rehab, patient is declining. She claims that she is not having any suicidal homicidal ideations today, denies any auditory or visual hallucinations. MENTAL STATUS EXAM: General Appearance: Patient appears to be stated age is alert, directable, and attempts to cooperate]. Patient appears to have fair hygiene and grooming. Tattoos, dressed casually. Behavior: Patient is seated without any agitated behavior. Improving mildly Speech: Patient's speech is [fluent and nonpressured. Mood/Affect: Patient reports their mood is improving mildly, affect is congruent and constricted. Suicidality/Homicidality: Patient denies having any homicidal ideation intent or plan. Denies any suicidal ideations intent or plan Perceptions: Patient denies any visual hallucinations and denies any auditory hallucinations Though content/process: [There is no evidence of any delusional thought content and thought process mildly improving Memory and concentration: AOX3, grossly intact for the purposes of this session. Judgment and insight: improving mildly IMPRESSIONS: mood disorder, unspecified rule out bipolar depression methamphetamine abuse Nicotine dependance homelessness PLAN: -Patient is admitted under voluntary status to [facility] for stabilization of psychiatric symptoms and safety. -Medications :change all medications to qhs, Lamictal 25mg qhs for mood stabilization, Patient was informed to check for a rash, and to let nursing staff or marketing copywriter know if she notices this. Trazodone 25mg qhs for sleep, Lexapro 10 mg qhs for depression/anxiety -Ativan and Haldol PRN for agitation/aggression -NRT - nicotine patch -SW on board for discharge planning. Encourage patient to participate in groups to work on coping skills. Patient currently refusing rehab at this time, possible d/c tomorrow
[2024-01-07] MEDS: lamoTRIgine 25 MG TAB PO SCH (21:17)
[2024-01-08 06:50] VITALS: BP 108/59; PULSE 62; TEMP 97.9
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
--- NOTE | 2024-01-10 15:46 | CDI ---
Documentation Clarification Form Date: 01/10/2024 03:19:30 PM From: Delphine Raya Phone: Admit Date: 01/04/2024 03:13:00 PM Patient Name: Evelyn Workman Visit Number: [id number] Discharge Date: 01/08/2024 03:15:00 PM ATTENTION: The Clinical Documentation Specialists (CDI) and [facility] Coding Staff appreciate your assistance in clarifying documentation. Please respond to the clarification below the line at the bottom and electronically sign. The CDI & [facility] Coding staff will review the response and follow-up if needed. Please note: Queries are made part of the Legal Health Record. If you have any questions, please contact the author of this message via ITS. Doctor/Provider: Fred Daniel Bipolar disorder is documented per ED Note and throughout the Progress Notes and DCS. Additional clarification regarding the bipolar disorder is requested. Patient history/risk factors: 43yo F, bipolardepression, methamphetamine abuse, homelessness, from , smoker Clinical Indicators: endorses paranoia, thinking someone is out to get her, or following her. She claims to not have good sleep, and that her appetite is poor. States she has a bad temper. Suicidal ideations. Cl also reports HIideation"at people who threaten me. She is minimizing herdrug use, and refusing rehab at this time. Presents withmanictype symptomsof pressured speech, flight of ideas, tangential, labile mood,elevatedmood, tearful, overwhelmed, anxious, and feeling hopeless. Cl reports they were staying in a hotel with their son the " last couple of days, because my Mom helped us out, he'shomelesstoo, he's age 25, but we don't have any money, so he leaves and says he'll be back, and now I am alone here." Treatment: Trazodone 25 mg daily at bedtime for sleep/mood, Lexapro 10 mg daily at bedtime for mood/anxiety. Patient spoke of her stressors and engaged intherapyboth group and individual. Please clarify the type, severity, and chronicity of the bipolar disorder, if known: Please describe current episode: [ ] Manic [ ] Depressed [ ] Mixed [ X ] Unable to determine Severity: [ ] Mild [ ] Moderate [ ] Severe [ ] With psychotic features [ ] Without psychotic features [ X ] Unknown or unable to determine (Template Last Revised: August 2020) MTDD
== END 2024-01-08 15:15 | disposition home or self-care (01) | DRG 885 ==
LOC: EC 04:55 → 3MHU 15:13
PROVIDERS: ADMIT Psychiatry & Neurology Psychiatry; ATTEND Psychiatry & Neurology Psychiatry
DX: F31.9 Bipolar disorder, unspecified (principal); R45.851 Suicidal ideations; Z59.00 Homelessness unspecified; R45.850 Homicidal ideations; F15.10 Other stimulant abuse, uncomplicated; F17.210 Nicotine dependence, cigarettes, uncomplicated; F41.9 Anxiety disorder, unspecified; F43.10 Post-traumatic stress disorder, unspecified; F19.90 Other psychoactive substance use, unspecified, uncomplicated; R21 Rash and other nonspecific skin eruption; Z91.51 Personal history of suicidal behavior; Z56.0 Unemployment, unspecified; Z63.5 Disruption of family by separation and divorce; Z86.19 Personal history of other infectious and parasitic diseases; Z81.8 Family history of other mental and behavioral disorders
CPT/HCPCS: 80053; 80061; 80306; 81001; 81025; 82075; 83036; 84443; 85025; 87635; 99285

== ENCOUNTER 2024-03-12 13:45 | Emergency (ER) | payer OTHER ==
[2024-03-12 13:49] VITALS: BP 135/78; PULSE 71; RESP 18; TEMP 97.6
--- NOTE | 2024-03-12 14:16 | ED ---
General Adult HPI - General Chief complaint: Skin/Abscess/Foreign Body Stated complaint: L arm rash/L foot inj Time Seen by Provider: 03/12/24 13:52 Source: patient, RN notes reviewed Mode of arrival: ambulatory Limitations: no limitations - History of Present Illness Initial comments: Patient is a 43-year-old female presenting to the emergency department with concern for foot injury. Patient states she stepped on something while walking barefoot a couple weeks ago. Patient states she still has some discomfort with walking on her left foot and questions if there could be some glass in it. Patient is unclear exactly where this could be added. Patient also was at a hotel a few days ago and believes she had some bug bites to her left arm. These seem to be slowly improving - Related Data Previous Rx's Medication Instructions Recorded Escitalopram [Lexapro] 10 mg PO HS 30 Days #30 tab 01/08/24 Nicotine Gum (Polacrilex) 2 mg BUCCAL Q4HR PRN 30 Days #180 01/08/24 [Nicorette] pieceofgum lamoTRIgine [LaMICtal] 25 mg PO HS 30 Days #30 tab 01/08/24 traZODone HCL [Desyrel] 25 mg PO HS PRN 30 Days #15 tab 01/08/24 Allergies Allergy/AdvReac Type Severity Reaction Status Date / Time No Known Allergies Allergy Verified 03/12/24 13:49 Review of Systems ROS Statement: Those systems with pertinent positive or pertinent negative responses have been documented in the HPI. ROS Other: All systems not noted in ROS Statement are negative. Constitutional: Denies: fever Eyes: Denies: eye pain ENT: Denies: ear pain Respiratory: Denies: cough Cardiovascular: Denies: chest pain Endocrine: Denies: fatigue Gastrointestinal: Denies: abdominal pain Musculoskeletal: Reports: as per HPI Skin: Reports: as per HPI Past Medical History Past Medical History: No Reported History Additional Past Medical History / Comment(s): Staph in 2020 History of Any Multi-Drug Resistant Organisms: None Reported Past Surgical History: Section, Orthopedic Surgery, Tonsillectomy Past Anesthesia/Blood Transfusion Reactions: No Reported Reaction Past Psychological History: Anxiety, Depression, PTSD Smoking Status: Current every day smoker Past Drug Use History: Marijuana, Methamphetamine - Past Family History Mother Family Medical History: Cancer General Exam Limitations: no limitations General appearance: alert, in no apparent distress Head exam: Present: normocephalic Neck exam: Present: normal inspection Respiratory exam: Present: normal lung sounds bilaterally Cardiovascular Exam: Present: regular rate, normal rhythm GI/Abdominal exam: Present: soft. Absent: tenderness Extremities exam: Present: other (Left foot without signs of injury or tenderness. No erythema.) Neurological exam: Present: alert Psychiatric exam: Present: normal affect, normal mood Skin exam: Present: other (Left volar wrist with 3-4 small puncture with minimal edema consistent with potential bug bite. No sign of infection) Course Vital Signs 03/12/24 13:46 Temperature 97.6 F Pulse Rate 71 Respiratory 18 Rate Blood Pressure 135/78 O2 Sat by Pulse 96 Oximetry Medical Decision Making - Medical Decision Making Was pt. sent in by a medical professional or institution ([place] [facility], TRACK FITTER, urgent care, hospital, or longterm...) When possible be specific @ -No Did you speak to anyone other than the patient for history (EMS, parent, family, police, friend...)? What history was obtained from this source @ -No Did you review nursing and triage notes (agree or disagree)? Why? @ -I reviewed and agree with nursing and triage notes Were old charts reviewed (outside hosp., previous admission, EMS record, old EKG, old radiological studies, urgent care reports/EKG's, longterm records)? Report findings @ -No old charts were reviewed Differential Diagnosis (chest pain, altered mental status, abdominal pain women, abdominal pain men, vaginal bleeding, weakness, fever, dyspnea, syncope, headache, dizziness, GI bleed, back pain, seizure, CVA, palpatations, mental health, musculoskeletal)? @ -Not applicable EKG interpreted by me (3pts min.). @ -As above X-rays interpreted by me (1pt min.). @ -X-ray left foot shows questionable foreign body between the third and fourth toe however this is not the area of concern. CT interpreted by me (1pt min.). @ -None done U/S interpreted by me (1pt. min.). @ -None done What testing was considered but not performed or refused? (CT, X-rays, U/S, labs)? Why? @ -None What meds were considered but not given or refused? Why? @ -None Did you discuss the management of the patient with other professionals (professionals i.e. , PA, TRACK FITTER, lab, RT, psych nurse, social work assistant, brusher hand, teacher, police liaison officer, senior case manager)? Give summary @ -No Was smoking cessation discussed for >3mins.? @ -No Was critical care preformed (if so, how long)? @ -No Were there social determinants of health that impacted care today? How? (Homelessness, low income, unemployed, alcoholism, drug addiction, transportation, low edu. Level, literacy, decrease access to med. care, alf, rehab)? @ -No Was there de-escalation of care discussed even if they declined (Discuss DNR or withdrawal of care, Hospice)? DNR status @ -No What co-morbidities impacted this encounter? (DM, HTN, Smoking, COPD, CAD, Cancer, CVA, ARF, Chemo, Hep., AIDS, mental health diagnosis, sleep apnea, morbid obesity)? @ -None Was patient admitted / discharged? Hospital course, mention meds given and route, prescriptions, significant lab abnormalities, going to OR and other pertinent info. @ -Patient presents with mild probable insect bites left wrist that can be treated with [id number] antibiotic and steroid creams. Patient also has concern for possible foreign body. Foot reevaluated and no foreign body can be visualized or palpated an area of concern on the x-ray which is different from patient's area of concern. Patient will be discharged with follow-up with orthopedics. Undiagnosed new problem with uncertain prognosis? @ -No Drug Therapy requiring intensive monitoring for toxicity (Heparin, Nitro, Insulin, Cardizem)? @ -No Were any procedures done? @ -No Diagnosis/symptom? @ -Bug bite, suspected foreign body Acute, or Chronic, or Acute on Chronic? @ -Acute, acute Uncomplicated (without systemic symptoms) or Complicated (systemic symptoms)? @ -Default Side effects of treatment? @ -No Exacerbation, Progression, or Severe Exacerbation? @ -No Poses a threat to life or bodily function? How? (Chest pain, [place], [place], pneumonia, PE, COPD, DKA, ARF, appy, cholecystitis, CVA, Diverticulitis, Homicidal, Suicidal, threat to staff... and all critical care pts) @ -No Disposition Clinical Impression: Insect bite, Foot injury Disposition: HOME SELF-CARE Condition: Stable Instructions (If sedation given, give patient instructions): Insect Bite or Sting (ED), Soft Tissue Foreign Body (ED) Additional Instructions: Please do follow-up with orthopedics regarding your foot and have them evaluate for possible foreign body. Please apply mixture of antibiotic ointment and steroid cream to left wrist as needed. Return for fever, increased redness, swelling, pain, worsening or changing symptoms or any other concerns. Is patient prescribed a controlled substance at d/c from ED?: No Referrals: Vimal Trejo MD [Medical Doctor] - 1-2 days Reinier John MD [STAFF PHYSICIAN] - 1-2 days Time of Disposition: 14:52
--- NOTE | 2024-03-12 14:40 | XR ---
EXAMINATION TYPE: XR foot complete LT DATE OF EXAM: 03/12/2024 2:23 PM CLINICAL INDICATION: Female, 43 years old with history of foreign body; [facility] COMPARISON: None TECHNIQUE: XR foot complete LT examined in the AP, oblique, and lateral projections. FINDING/IMPRESSION: 1. No evidence of acute fracture. 2. Linear 8 mm metallic foreign body projecting between the third and fourth digits. [facility], Workstation: [id number], 03/12/2024 2:38 PM
== END 2024-03-12 15:16 | disposition home or self-care (01) ==
LOC: EC 13:45
CPT/HCPCS: 99283

== ENCOUNTER 2024-05-11 20:31 | Emergency (ER) | payer MEDICAID, OTHER ==
[2024-05-11 20:36] VITALS: BP 164/102; PULSE 64; RESP 18; TEMP 98.1
--- NOTE | 2024-05-11 21:10 | ED ---
Skin/Abscess/FB HPI - General Chief complaint: Skin/Abscess/Foreign Body Stated complaint: abscess Time Seen by Provider: 05/11/24 20:46 Source: patient, RN notes reviewed Mode of arrival: ambulatory Limitations: no limitations - History of Present Illness Initial comments: This is a 43-year-old female presenting with rash under bilateral breast x 1 day . Patient endorses associated itching and burning area. Denies other symptoms or known cause. MD complaint: rash Onset/Timin -: days(s) Location: chest Quality: burning Consistency: constant - Related Data Previous Rx's Medication Instructions Recorded Escitalopram [Lexapro] 10 mg PO HS 30 Days #30 tab 01/08/24 Nicotine Gum (Polacrilex) 2 mg BUCCAL Q4HR PRN 30 Days #180 01/08/24 [Nicorette] pieceofgum lamoTRIgine [LaMICtal] 25 mg PO HS 30 Days #30 tab 01/08/24 traZODone HCL [Desyrel] 25 mg PO HS PRN 30 Days #15 tab 01/08/24 Nystatin 100,000Unit/gm Cream 1 applic TOPICAL BID #30 gram 05/11/24 [Mycostatin Cream] Allergies Allergy/AdvReac Type Severity Reaction Status Date / Time No Known Allergies Allergy Verified 05/11/24 20:36 Review of Systems ROS Statement: Those systems with pertinent positive or pertinent negative responses have been documented in the HPI. ROS Other: All systems not noted in ROS Statement are negative. Past Medical History Past Medical History: No Reported History Additional Past Medical History / Comment(s): in 2019 History of Any Multi-Drug Resistant Organisms: None Reported Past Surgical History: Section, Orthopedic Surgery, Tonsillectomy Past Anesthesia/Blood Transfusion Reactions: No Reported Reaction Past Psychological History: Anxiety, Depression, PTSD Smoking Status: Current every day smoker Past Alcohol Use History: None Reported Past Drug Use History: Marijuana, Methamphetamine - Past Family History Mother Family Medical History: Cancer General Exam Limitations: no limitations General appearance: alert, in no apparent distress Head exam: Present: atraumatic, normocephalic, normal inspection Eye exam: Present: normal appearance, PERRL, EOMI. Absent: scleral icterus, conjunctival injection, periorbital swelling ENT exam: Present: normal exam, mucous membranes moist Neck exam: Present: normal inspection. Absent: tenderness, meningismus, lymphadenopathy Respiratory exam: Present: normal lung sounds bilaterally. Absent: respiratory distress, wheezes, rales, rhonchi, stridor Cardiovascular Exam: Present: regular rate, normal rhythm, normal heart sounds. Absent: systolic murmur, diastolic murmur, rubs, gallop, clicks GI/Abdominal exam: Present: soft, normal bowel sounds. Absent: distended, tenderness, guarding, rebound, rigid Extremities exam: Present: normal inspection, full ROM, normal capillary refill. Absent: tenderness, pedal edema, joint swelling, calf tenderness Back exam: Present: normal inspection Neurological exam: Present: alert, oriented X3, CN II-XII intact Psychiatric exam: Present: normal affect, normal mood Skin exam: Present: warm, dry, intact, normal color, rash (Large ovular rashes with distinct borders noted under bilateral breasts. Strong odor noted) Course Vital Signs 05/11/24 20:34 Temperature 98.1 F Pulse Rate 64 Respiratory 18 Rate Blood Pressure 164/102 O2 Sat by Pulse 97 Oximetry Medical Decision Making - Medical Decision Making Was pt. sent in by a medical professional or institution (, [place], [employer], urgent care, hospital, or alf...) When possible be specific @ -No Did you speak to anyone other than the patient for history (EMS, parent, family, police, friend...)? What history was obtained from this source @ -No Did you review nursing and triage notes (agree or disagree)? Why? @ -I reviewed and agree with nursing and triage notes Were old charts reviewed (outside hosp., previous admission, EMS record, old EKG, old radiological studies, urgent care reports/EKG's, alf records)? Report findings @ -No old charts were reviewed Differential Diagnosis (chest pain, altered mental status, abdominal pain women, abdominal pain men, vaginal bleeding, weakness, fever, dyspnea, syncope, headache, dizziness, GI bleed, back pain, seizure, CVA, palpatations, mental health, musculoskeletal)? @ -Intertrigo, tinea corporis, atopic dermatitis, psoriasis, contact dermatitis, this is not an exhaustive list EKG interpreted by me (3pts min.). @ -Not done X-rays interpreted by me (1pt min.). @ -None done CT interpreted by me (1pt min.). @ -None done U/S interpreted by me (1pt. min.). @ -None done What testing was considered but not performed or refused? (CT, X-rays, U/S, labs)? Why? @ -None What meds were considered but not given or refused? Why? @ -None Did you discuss the management of the patient with other professionals (professionals i.e. Dr., PA, FIELD ARTILLERY CANNONEER, lab, RT, psych nurse, outreach and education social worker, divorce lawyer, teacher, delinquency prevention officer, case briefer)? Give summary @ -No Was smoking cessation discussed for >3mins.? @ -No Was critical care preformed (if so, how long)? @ -No Were there social determinants of health that impacted care today? How? (Homelessness, low income, unemployed, alcoholism, drug addiction, transportation, low edu. Level, literacy, decrease access to med. care, prison, rehab)? @ -No Was there de-escalation of care discussed even if they declined (Discuss DNR or withdrawal of care, Hospice)? DNR status @ -No What co-morbidities impacted this encounter? (DM, HTN, Smoking, COPD, CAD, Cancer, CVA, ARF, Chemo, Hep., AIDS, mental health diagnosis, sleep apnea, morbid obesity)? @ -None Was patient admitted / discharged? Hospital course, mention meds given and route, prescriptions, significant lab abnormalities, going to OR and other p ertinent info. @ -Clinical diagnosis of intertrigo made. Advised patient to keep area clean and dry throughout the day and night. Nystatin cream sent to pharmacy. Advised follow-up with PCP as needed. Undiagnosed new problem with uncertain prognosis? @ -No Drug Therapy requiring intensive monitoring for toxicity (Heparin, Nitro, Insulin, Cardizem)? @ -No Were any procedures done? @ -No Diagnosis/symptom? @ -Intertrigo Acute, or Chronic, or Acute on Chronic? @ -Acute Uncomplicated (without systemic symptoms) or Complicated (systemic symptoms)? @ -Uncomplicated Side effects of treatment? @ -No Exacerbation, Progression, or Severe Exacerbation? @ -No Poses a threat to life or bodily function? How? (Chest pain, [place], [place], pneumonia, PE, COPD, DKA, ARF, appy, cholecystitis, CVA, Diverticulitis, Homicidal, Suicidal, threat to staff... and all critical care pts) @ -No Disposition Clinical Impression: Intertrigo Disposition: HOME SELF-CARE Condition: Good Instructions (If sedation given, give patient instructions): Skin Yeast Infection (ED) Prescriptions: Nystatin 100,000Unit/gm Cream [Mycostatin Cream] 1 applic TOPICAL BID #30 gram Is patient prescribed a controlled substance at d/c from ED?: No Referrals: None,Stated [Primary Care Provider] - 1-2 days Time of Disposition: 21:10
== END 2024-05-11 21:22 | disposition home or self-care (01) ==
LOC: EC 20:31
DX: L30.4 Erythema intertrigo (principal); F17.200 Nicotine dependence, unspecified, uncomplicated
CPT/HCPCS: 99282

== ENCOUNTER 2024-06-09 21:55 | Inpatient (IN) | payer OTHER, MEDICAID ==
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
[2024-06-10] MEDS: NYSTATIN 100,000 UNIT/GM POWD 15 GM TOPICAL SCH (00:20)
[2024-06-10 01:55] LABS: Basophils # (A) 0.1 k/uL (0-0.2); Basophils % (A) 1 %; Eosinophils # (A) 0.4 k/uL (0-0.7); Eosinophils % (A) 3 %; HCT 39.4 % (34.0-46.0); HGB 12.9 gm/dL (11.4-16.0); Lymphocytes # (A) 1.8 k/uL (1.0-4.8); Lymphocytes % (A) 13 %; MCH 29.6 pg (25.0-35.0); MCHC 32.8 g/dL (31.0-37.0); MCV 90.2 fL (80.0-100.0); Mean Platelet Volume 7.3; Monocytes # (A) 0.7 k/uL (0-1.0); Monocytes % (A) 5 %; Neutrophils # (A) 11.2 k/uL (1.3-7.7); Neutrophils % (A) 78 %; Platelet Count 298 k/uL (150-450); RBC 4.36 m/uL (3.80-5.40); WBC 14.4 k/uL (3.8-10.6)
[2024-06-10 02:17] LABS: ALT 18 U/L (4-34); AST 22 U/L (14-36); Acetaminophen <10.0 ug/mL; African American GFR (CKD) >90 (>60 ml/min/1.73 sqM); Albumin 3.8 g/dL (3.5-5.0); Alcohol <10 mg/dL; Alkaline Phosphatase 76 U/L (38-126); Anion Gap 3 mmol/L; Blood Urea Nitrogen 32 mg/dL (7-17); Calcium 9.2 mg/dL (8.4-10.2); Carbon Dioxide 27 mmol/L (22-30); Chloride 107 mmol/L (98-107); Glucose 94 mg/dL (74-99); Non-African American GFR(CKD) >90 (>60 ml/min/1.73 sqM); Potassium 3.9 mmol/L (3.5-5.1); Salicylate <1.0 mg/dL; Sodium 137 mmol/L (137-145); Total Bilirubin 0.7 mg/dL (0.2-1.3); Total Protein 6.3 g/dL (6.3-8.2)
[2024-06-10 07:12] LABS: Appearance,Urine Cloudy (Clear); Bacteria,Urine Rare /hpf; Bilirubin,Urine Negative (Negative); Blood,Urine Trace (Negative); Color,Urine Yellow; Glucose,Urine (UA) Negative (Negative); Hyaline Casts,Urine 5 /lpf (0-2); Ketones,Urine Negative (Negative); Leukocyte Esterase,Urine Large (Negative); Mucus,Urine Few /hpf; Nitrite,Urine Negative (Negative); PH, Urine 5.5 (5.0-8.0); Protein,Urine Trace (Negative); RBC,Urine 6 /hpf (0-5); Specific Gravity,Urine 1.032 (1.001-1.035); Squamous Epithelial Cell,Urine 2 /hpf (0-4); Urobilinogen,Urine <2.0 mg/dL (<2.0); WBC,Urine 17 /hpf (0-5)
[2024-06-10 07:18] LABS: Amphetamine Screen,Urine Detected (NotDetected); Barbiturate Screen,Urine Not Detected (NotDetected); Benzodiazepines Screen,Urine Not Detected (NotDetected); Cocaine Screen,Urine Not Detected (NotDetected); Methadone Screen, Urine Not Detected (NotDetected); Opiate Screen,Urine Not Detected (NotDetected); Oxycodone Screen, Urine Not Detected (NotDetected); Phencyclidine Screen,Urine Not Detected (NotDetected); Tricyclic Antidepressant,Urine Not Detected (NotDetected); Urn Cannabinoid Scrn Not Detected (NotDetected)
[2024-06-10] MEDS ORDERED: LORazepam 2 MG/ML INJ IM PRN (16:51)
[2024-06-10] MEDS ORDERED: HALOPERIDOL LACTATE 5 MG/ML 1 ML VIAL IM PRN (16:51)
[2024-06-10] MEDS ORDERED: traZODone HCL 50 MG TAB PO PRN (16:51)
[2024-06-10] MEDS ORDERED: MAGNESIUM HYDROXIDE 2,400 MG/30 ML CUP PO PRN (16:51)
[2024-06-10] MEDS ORDERED: LORazepam 1 MG TAB PO PRN (16:51)
[2024-06-10] MEDS ORDERED: haloperidoL 5 MG TAB PO PRN (16:51)
[2024-06-10] MEDS ORDERED: MAG HYDROX/AL HYDROX/SIMETH 355 ML BOTTLE PO PRN (16:51)
[2024-06-10] MEDS ORDERED: ACETAMINOPHEN TAB 325 MG TAB PO PRN (16:51)
[2024-06-10] MEDS: IBUPROFEN 600 MG TAB PO PRN (23:07)
--- NOTE | 2024-06-11 00:51 | P.CONS ---
History of Present Illness - Reason for Consult Consult date: 06/10/24 - History of Present Illness The patient is a 43-year-old female currently homeless who was brought into the emergency room for psychiatric evaluation under police custody. The patient was admitted to the mental health unit where she was seen and evaluated while accompanied by an [facility] RN. The patient reports that she has been struggling with substance use but declined to state which drugs. The patient's urine toxicology was positive for methamphetamines. The patient also reported a possible rash on her medial thighs with difficulty ambulating as a result. She denied any additional complaints. Also reported smoking half pack of cigarettes daily with no alcohol use. Denied chest discomfort, shortness of breath, fever, chills, cough, nausea, vomiting, abdominal pain, diarrhea. Review of systems: Pertinent positives and negatives as discussed in HPI, a complete review of systems was performed and all other systems are negative. Physical examination: General: non toxic, no distress, appears at stated age, morbidly obese Derm: Bilateral medial thigh erythema with areas concerning for fungal infection with intertrigo, no unusual ecchymoses Head: atraumatic, normocephalic, symmetric Eyes: EOMI, no lid lag, anicteric sclera ENT: Nose and ears atraumatic, no thrush, no pharyngeal erythema Neck: trachea midline, supple Mouth: no lip lesion, mucus membranes moist Cardiovascular: S1S2 reg, no murmur, no edema Lungs: CTA bilateral, no rhonchi, no rales , no accessory muscle use Abdominal: soft, nontender to palpation, no guarding Ext: no gross muscle atrophy, no contractures, Neuro: No gross focal neuro deficits noted Psych: Alert, oriented, appropriate affect Assessment: Intertrigo Polysubstance abuse including methamphetamine Leukocytosis, likely secondary to acute stressor with no signs of active infection at this time Bipolar disorder Imaging: None performed Data Review: Reviewed with urine toxicology positive for methamphetamines, WBC count 14.4, sodium 137, BUN 32 Plan: Continue with nystatin powder Strongly advised on the importance of cessation from substance use Defer management of bipolar disorder to primary psychiatry service Thank you for allowing us to participate in the care of this patient. We will follow peripherally. Do not hesitate to contact us with questions. Someone can be reached from the [facility] hospitalist group at all hours of the day at [phone]. Past Medical History Past Medical History: No Reported History Additional Past Medical History / Comment(s): Staph in 2019 History of Any Multi-Drug Resistant Organisms: None Reported Past Surgical History: Section, Orthopedic Surgery, Tonsillectomy Past Anesthesia/Blood Transfusion Reactions: No Reported Reaction Past Psychological History: Anxiety, Depression, PTSD Smoking Status: Current every day smoker Past Alcohol Use History: None Reported Past Drug Use History: Marijuana, Methamphetamine - Past Family History Mother Family Medical History: Cancer Medications and Allergies Home Medications Medication Instructions Recorded Confirmed Type lamoTRIgine [LaMICtal Xr] 25 mg PO HS 06/10/24 06/10/24 History Allergies Allergy/AdvReac Type Severity Reaction Status Date / Time No Known Allergies Allergy Verified 06/10/24 13:40 Physical Exam Vitals: Vital Signs Temp Pulse Resp BP Pulse Ox 06/10/24 17:55 97.5 F L 88 128/69 98 06/10/24 11:18 16 06/10/24 08:00 17 Intake and Output 06/10/24 06/10/24 06/11/24 14:59 22:59 06:59 Other: Weight 113.483 kg Results CBC & Chem 7: 06/10/24 01:28 06/10/24 01:28 Labs: Abnormal Lab Results - Last 24 Hours (Table) 06/10/24 06/10/24 06/10/24 Range/Units 01:28 01:28 06:10 WBC 14.4 H (3.8-10.6) k/uL Neutrophils # 11.2 H (1.3-7.7) k/uL BUN 32 H (7-17) mg/dL Urine Appearance Cloudy H (Clear) Urine Protein Trace H (Negative) Urine Blood Trace H (Negative) Ur Leukocyte Esterase Large H (Negative) Urine RBC 6 H (0-5) /hpf Urine WBC 17 H (0-5) /hpf Urine Bacteria Rare H (None) /hpf Hyaline Casts 5 H (0-2) /lpf Urine Mucus Few H (None) /hpf Ur Amphetamines Screen Detected H (NotDetected) U Methamphetamines Scrn Detected H (NotDetected)
[2024-06-11] MEDS: NICOTINE 14MG/24HR PATCH TRANSDERM SCH (09:34)
[2024-06-11] MEDS: lamoTRIgine 25 MG TAB PO SCH (09:34)
--- NOTE | 2024-06-11 11:48 | P.HP ---
Psychiatric H&P - . H&P Date: 06/11/24 History & Physical: Allergies Allergy/AdvReac Type Severity Reaction Status Date / Time No Known Allergies Allergy Verified 06/10/24 13:40 Vital Signs Temp 98.5 F 06/11/24 09:10 Pulse 84 06/11/24 09:10 Resp 18 06/11/24 09:10 BP 116/75 06/11/24 09:10 Pulse Ox 98 06/10/24 17:55 FiO2 Intake & Output 06/10/24 06/11/24 06/11/24 18:59 06:59 18:59 Weight 113.483 kg Laboratory Last Values WBC 14.4 k/uL (3.8-10.6) H 06/10/24 01:28 RBC 4.36 m/uL (3.80-5.40) 06/10/24 01:28 Hgb 12.9 gm/dL (11.4-16.0) 06/10/24 01:28 Hct 39.4 % (34.0-46.0) 06/10/24 01:28 MCV 90.2 fL (80.0-100.0) 06/10/24 01:28 MCH 29.6 pg (25.0-35.0) 06/10/24 01:28 MCHC 32.8 g/dL (31.0-37.0) 06/10/24 01:28 RDW 13.0 % (11.5-15.5) 06/10/24 01:28 Plt Count 298 k/uL (150-450) 06/10/24 01:28 MPV 7.3 06/10/24 01:28 Neutrophils % 78 % 06/10/24 01:28 Lymphocytes % 13 % 06/10/24 01:28 Monocytes % 5 % 06/10/24 01:28 Eosinophils % 3 % 06/10/24 01:28 Basophils % 1 % 06/10/24 01:28 Neutrophils # 11.2 k/uL (1.3-7.7) H 06/10/24 01:28 Lymphocytes # 1.8 k/uL (1.0-4.8) 06/10/24 01:28 Monocytes # 0.7 k/uL (0-1.0) 06/10/24 01:28 Eosinophils # 0.4 k/uL (0-0.7) 06/10/24 01:28 Basophils # 0.1 k/uL (0-0.2) 06/10/24 01:28 Sodium 137 mmol/L (137-145) 06/10/24 01:28 Potassium 3.9 mmol/L (3.5-5.1) 06/10/24 01:28 Chloride 107 mmol/L (98-107) 06/10/24 01:28 Carbon Dioxide 27 mmol/L (22-30) 06/10/24 01:28 Anion Gap 3 mmol/L 06/10/24 01:28 BUN 32 mg/dL (7-17) H 06/10/24 01:28 Creatinine 0.76 mg/dL (0.52-1.04) 06/10/24 01:28 Est GFR (CKD-EPI)AfAm >90 (>60 ml/min/1.73 sqM) 06/10/24 01:28 Est GFR (CKD-EPI)NonAf >90 (>60 ml/min/1.73 sqM) 06/10/24 01:28 Glucose 94 mg/dL (74-99) 06/10/24 01:28 Calcium 9.2 mg/dL (8.4-10.2) 06/10/24 01:28 Total Bilirubin 0.7 mg/dL (0.2-1.3) 06/10/24 01:28 AST 22 U/L (14-36) 06/10/24:28 ALT 18 U/L (4-34) 06/10/24 01:28 Alkaline Phosphatase 76 U/L (38-126) 06/10/24 01:28 Total Protein 6.3 g/dL (6.3-8.2) 06/10/24 01:28 Albumin 3.8 g/dL (3.5-5.0) 06/10/24 01:28 Urine Color Yellow 06/10/24 06:10 Urine Appearance Cloudy (Clear) H 06/10/24 06:10 Urine pH 5.5 (5.0-8.0) 06/10/24 06:10 Ur Specific [place] 1.032 (1.001-1.035) 06/10/24 06:10 Urine Protein Trace (Negative) H 06/10/24 06:10 Urine Glucose (UA) Negative (Negative) 06/10/24 06:10 Urine Ketones Negative (Negative) 06/10/24 06:10 Urine Blood Trace (Negative) H 06/10/24 06:10 Urine Nitrite Negative (Negative) 06/10/24 06:10 Urine Bilirubin Negative (Negative) 06/10/24 06:10 Urine Urobilinogen <2.0 mg/dL (<2.0) 06/10/24 06:10 Ur Leukocyte Esterase Large (Negative) H 06/10/24 06:10 Urine RBC 6 /hpf (0-5) H 06/10/24 06:10 Urine WBC 17 /hpf (0-5) H 06/10/24 06:10 Ur Squamous Epith Cells 2 /hpf (0-4) 06/10/24 06:10 Urine Bacteria Rare /hpf (None) H 06/10/24 06:10 Hyaline Casts 5 /lpf (0-2) H 06/10/24 06:10 Urine Mucus Few /hpf (None) H 06/10/24 06:10 Urine HCG, Qual Not Detected (Not Detectd) 06/10/24 06:10 Salicylates <1.0 mg/dL 06/10/24 01:28 Urine Opiates Screen Not Detected (NotDetected) 06/10/24 06:10 Ur Oxycodone Screen Not Detected (NotDetected) 06/10/24 06:10 Urine Methadone Screen Not Detected (NotDetected) 06/10/24 06:10 Acetaminophen <10.0 ug/mL 06/10/24 01:28 Ur Barbiturates Screen Not Detected (NotDetected) 06/10/24 06:10 U Tricyclic Antidepress Not Detected (NotDetected) 06/10/24 06:10 Ur Phencyclidine Scrn Not Detected (NotDetected) 06/10/24 06:10 Ur Amphetamines Screen Detected (NotDetected) H 06/10/24 06:10 U Methamphetamines Scrn Detected (NotDetected) H 06/10/24 06:10 U Benzodiazepines Scrn Not Detected (NotDetected) 06/10/24 06:10 Urine Cocaine Screen Not Detected (NotDetected) 06/10/24 06:10 U Marijuana (THC) Screen Not Detected (NotDetected) 06/10/24 06:10 Serum Alcohol <10 mg/dL 06/10/24 01:28 SARS-CoV-2 (PCR) Not Detected (Not Detectd) 06/10/24 01:28 06/11/24 11:35 IDENTIFYING DATA: Patient is a 43 year old female. Currently homeless. Has 4 children, from spouse. Unemployed. HPI: Patient presented to the hospital on yesterday brought in by police on a petition claiming that patient was responding to internal stimuli not taking her medications. Patient was assessed last night by EPS and according to note "Patient agreeable to speak with casualty underwriter and was resting on stretcher. Patient was brought in on a petition by PD; petition states "Evelyn is responding to stimuli. She is homeless and off her medications. She appears to be hallucinating. Can not care for her basic needs". Patient appeared disheveled and is malodorous. Patient hyperverbal, tangential and at times hard to understand. Patient states she is suicidal "with multiple plans" but will not elaborate on specific plan. Prev attempt in 2017 by overdosing. Patient is open with [facility] but has not been there since January 2024. Patient states "I missed my apmnt because I was in alf. I'm bipolar, I'm going through menopause, why can't I just be trash and go on the street, yeah I was pissed at her try to get some rest and be safe, the cats they don't have a litterbox". Patient has flight of ideas but is cooperative. Patient admits to being homeless and "I have a tent I stay in". When casualty underwriter asked pt if she has been compliant with medication, pt stated "I have meds in my jacket, I have no idea dude". Pt denies access to guns or weapons and states her only support is her mom and brother. Patient states she is on probation but unsure for what or for how long. Patient states she has not slept in 5 days, poor hygiene, poor appetite, poor impulse control, poor insight, poor judgment. Patient admitted to using methamphetamine but was unable to tell me when her last use was "I don't know I didn't want to but it was when all that stuff and all the people". Pt denies health problems, but complains of excoriation near groin from being in wet clothing. Pt denies A/VH, denies HI" patient was admitted to the unit involuntarily, she met with casualty underwriter today, appears to be disheveled in appearance. States that she is struggling dealing with homelessness. Claims that she has been feeling overwhelmed depressed. She was rambling at times, evasive sometimes incoherent. Was endorsing paranoia towards the police claims that she might want to try to mike them. Claims that she fired her therapist at [facility], was describing having legal issues and going to court. She claims that she has been up for the past 5 days. She did recognize that she is in the right place and wants to take medications to help herself. She was also claiming that she was using recreational drugs including methamphetamine however was fairly guarded and evasive about how much she is using. Also claims that she uses cigarettes. Patient denies any homicidal ideations intent or plan. Did claim that she was feeling suicidal, no specific plan today. At this time patient denies any auditory or visual hallucinations. Patient admits to using methamphetamine and cigarettes as noted above. PAST PSYCHIATRIC HISTORY: Patient has a history of bipolar disorder methamphetamine use and homelessness. She was last psychiatrically admitted to the mental health unit in December 2023. She was previously on Lamictal, trazodone, Lexapro. She claims that she is apparently been going to [facility] for follow-up. She has had multiple admissions to psychiatric and rehab facilities. She had a suicide attempt in 2017 PMH:As per ER note ALLERGIES: as per EMR CHEMICAL DEPENDENCY HISTORY: as per HPI FAMILY PSYCHIATRIC/SUBSTANCE USE HISTORY: both sides depression and anxiety. SOCIAL HISTORY: Patient was born and raised in [place], [place]. Currently homeless, completed through 11th grade in school. from spouse. Unemployed. Claims an extensive criminal history, starting at 15 years old. MENTAL STATUS EXAM: General Appearance: Patient appears to be overweight, disheveled appearance stated age is alert, directable, and attempts to cooperate]. Patient appears to have fair hygiene and grooming. Tattoos, dressed casually. Behavior: Patient is seated without any agitated behavior. Minimizing drug use, attempts to cooperate Speech: Patient's speech is [fluent and nonpressured. tangential, rambling Mood/Affect: Patient reports their mood is depressed and anxious, affect is congruent Suicidality/Homicidality: Patient denies having any homicidal ideation intent or plan. Did claim that she is having suicidal thoughts, no plan. Perceptions: Patient denies any visual hallucinations and denies any auditory hallucinations Though content/process: [There is no evidence of any delusional thought content and thought process is tangential, rambling. Endorsing some paranoia. Memory and concentration: AOX3, grossly intact for the purposes of this session. Can spell "WORLD" backwards Judgment and insight: Poor STRENGTHS/WEAKNESSES: strength is that patient is resilient. Weakness is that patient has poor judgment and is impulsive has a history of drug use INTELLECT: Average IMPRESSIONS: Bipolar disorder methamphetamine use disorder, severe Nicotine dependance homelessness Legal issues PLAN: -Patient is admitted under voluntary status to MHU for stabilization of psychiatric symptoms and safety. Patient has signed adult voluntary form and medication consent and is placed in patient's chart. -Medications : Will start patient on Abilify p.o. 5 mg daily for mood stabilization, Trazodone 25 mg qhs for sleep, Lexapro 5mg daily for depression/anxiety -Ativan and Haldol PRN for agitation/aggression -Patient was counselled on substance abuse and desired to cut back on use, she claims that she is interested in rehab. -Patient was informed of the risks, benefits and side effects of the medication and patient verbally consented to taking the medications. -Internal Medicine consult to perform medical evaluation and physical. -NRT -nicotine patch -SW on board for discharge planning. Encourage patient to participate in groups to work on coping skills. 06/11/24 11:43
[2024-06-11] MEDS: ARIPiprazole 5 MG TAB PO SCH (11:58)
[2024-06-11] MEDS: ESCITALOPRAM 5 MG TAB PO SCH (11:59)
[2024-06-11 12:49] LABS: Appearance,Urine Cloudy (Clear); Bacteria,Urine Rare /hpf; Bilirubin,Urine Negative (Negative); Blood,Urine Moderate (Negative); Color,Urine Light Yellow; Glucose,Urine (UA) Negative (Negative); Hyaline Casts,Urine 1 /lpf (0-2); Ketones,Urine Negative (Negative); Leukocyte Esterase,Urine Large (Negative); Mucus,Urine Few /hpf; Nitrite,Urine Negative (Negative); Protein,Urine Negative (Negative); RBC,Urine 6 /hpf (0-5); Specific Gravity,Urine 1.024 (1.001-1.035); Squamous Epithelial Cell,Urine 5 /hpf (0-4); Urobilinogen,Urine <2.0 mg/dL (<2.0); WBC,Urine 6 /hpf (0-5)
[2024-06-11 13:32] LABS: ALT 16 U/L (4-34); AST 20 U/L (14-36); African American GFR (CKD) >90 (>60 ml/min/1.73 sqM); Albumin 3.6 g/dL (3.5-5.0); Alkaline Phosphatase 67 U/L (38-126); Anion Gap 4 mmol/L; Bilirubin, Delta 0.1 mg/dL (0.0-0.2); Bilirubin,Unconjugated 0.3 mg/dL (0.0-1.1); Blood Urea Nitrogen 22 mg/dL (7-17); Calcium 8.8 mg/dL (8.4-10.2); Carbon Dioxide 27 mmol/L (22-30); Chloride 109 mmol/L (98-107); Glucose 89 mg/dL (74-99); Non-African American GFR(CKD) >90 (>60 ml/min/1.73 sqM); Potassium 4.6 mmol/L (3.5-5.1); Sodium 140 mmol/L (137-145); Total Bilirubin 0.4 mg/dL (0.2-1.3); Total Protein 6.1 g/dL (6.3-8.2)
[2024-06-11] MEDS: traZODone HCL 50 MG TAB PO SCH (21:32)
[2024-06-12 09:11] LABS: Chol/HDL Ratio 3.18 Ratio; LDL Cholesterol,Calculated 96.9 mg/dL (0.0-131.0)
[2024-06-12 09:38] VITALS: RESP 16
--- NOTE | 2024-06-12 11:12 | P.PN ---
Progress Note - Text Progress Note Date: 06/12/24 Interval history: Patient was seen in her room today and was directable and agreeable to speak with sql report writer. Patient claims that she slept fairly last night with trazodone. States that today she feels she has a sore throat mild coughing, claims that she feels unwell. She states that she has mainly been keeping herself in her room. Claims that her mood is still a bit depressed, endorsing some anxiety. Fair appetite. At this time patient denies any suicidal or homicidal ideations intent or plan. Denies any Auditory or visual hallucinations. Patient denies any side effects from the medications and has been compliant with meds. Less rambling today, more goal oriented. Mental status exam: General Appearance: Patient appears to be stated age is alert, directable, and cooperative. Cooperative today Behavior: No agitated behavior. Patient is calm and directable more cooperative today Speech: Patient's speech is fluent and nonpressured. Less rambling. Mood/Affect: Mood is rest however improving mildly, affect is congruent and constricted. Improving mildly Suicidality/Homicidality: Patient denies having any suicidal or homicidal ideation intent or plan. Perceptions: Patient denies any auditory or visual hallucinations. Though content/process: There is no evidence of any delusional thought content and thought process is linear and goal-directed. Focused on her symptoms Memory and concentration: AOX3, grossly intact for the purposes of this session Judgment and insight: Poor, improving mildly Assessment/Plan: Continue with current diagnosis. Patient continues to meet criteria for inpatient psychiatric admission for symptom stabilization and safety. Patient will be maintained on current psychotropic medication regimen, with the exception of increasing Lexapro to 10 mg daily and will also check a 4- plex for covid or other resp infections. will treat UTI with nitrofurantoin. Monitor for medication compliance and for any psychotropic medication side effects. Will continue to monitor ongoing response to treatment. Encouraged participation in milieu.
[2024-06-12] MEDS: NITROFURANTOIN MONOHYD/M-CRYST 100 MG CAP PO SCH (12:14)
[2024-06-13] MEDS: ESCITALOPRAM 10 MG TAB PO SCH (12:08)
[2024-06-13] MEDS ORDERED: traZODone HCL 50 MG TAB PO PRN (12:35)
--- NOTE | 2024-06-13 12:39 | P.PN ---
Progress Note - Text Progress Note Date: 06/13/24 Interval history: Patient was seen today for psychiatric follow-up. She was in her room, contin ues have a disheveled appearance. States that she does not feel she is tolerating the Abilify well, claims that she feels "ill". She states that she started feeling this since she started the Abilify. Was somatically preoccupied today. We spoke about checking lab work tomorrow morning. She claims that she is still having some depression anxiety, continues to complain of poor energy and mood during the day. Insight and judgment mildly improving. Mainly keeping herself in her room. States that she slept on and off last night. Denying any suicidal homicidal ideations intent or plan. Denying any auditory or visual hallucinations. MENTAL STATUS EXAM: General Appearance: Patient appears to be overweight, disheveled appearance stated age is alert, directable, and attempts to cooperate]. Patient appears to have fair hygiene and grooming. Tattoos, dressed casually. Behavior: Patient is seated without any agitated behavior. attempts to cooperate Speech: Patient's speech is [fluent and nonpressured. Less rambling Mood/Affect: Patient reports their mood is improving mildly, affect is congruent and constricted Suicidality/Homicidality: Patient denies having any homicidal ideation intent or plan. Denies any suicidal thoughts. Perceptions: Patient denies any visual hallucinations and denies any auditory hallucinations Though content/process: [There is no evidence of any delusional thought content and thought process is improving. Somatically preoccupied Memory and concentration: AOX3, grossly intact for the purposes of this session Judgment and insight: Poor, improving mildly IMPRESSIONS: Bipolar disorder methamphetamine use disorder, severe Nicotine dependance homelessness Legal issues PLAN: -Patient is admitted under voluntary status to MHU for stabilization of psychiatric symptoms and safety. Patient has signed adult voluntary form and medication consent and is placed in patient's chart. -Medications : d/c Abilify due to intolerance and replace with seroquel 25 mg qhs for mood stabilization, Trazodone 25 mg qhs prn for sleep, Lexapro 10 mg daily for depression/anxiety -Ativan and Haldol PRN for agitation/aggression -check cbc with diff tomorrow morning -abx for treatment of suspected uti -NRT -nicotine patch -SW on board for discharge planning. Encourage patient to participate in groups to work on coping skills.
[2024-06-13] MEDS: QUEtiapine 25 MG TAB PO SCH (21:07)
--- NOTE | 2024-06-14 11:39 | P.PN ---
Progress Note - Text Progress Note Date: 06/14/24 Interval history: Patient was seen today for psychiatric follow-up. She was laying in her bed t alking to her roommate. Continues to have a disheveled appearance. States that her mood and anxiety are mildly improving since yesterday. We spoke about increasing her Lexapro which she is okay with. Last about potential discharge planning and where she can go. She claims that she still feels a bit ill since yesterday. Claims that she slept fairly last night with the Seroquel. Claims that her appetite is still poor. We spoke about drawing blood tomorrow morning to check CBC count. Insight and judgment mildly improving. Mainly keeping herself in her room. States that she slept on and off last night. Denying any suicidal homicidal ideations intent or plan. Denying any auditory or visual hallucinations. MENTAL STATUS EXAM: General Appearance: Patient appears to be overweight, disheveled appearance stated age is alert, directable, and attempts to cooperate]. Patient appears to have fair hygiene and grooming. Tattoos, dressed casually. Behavior: Patient is seated without any agitated behavior. attempts to cooperate Speech: Patient's speech is [fluent and nonpressured. Less rambling today Mood/Affect: Patient reports their mood is improving mildly, affect is congruent and constricted, improving mildly Suicidality/Homicidality: Patient denies having any homicidal ideation intent or plan. Denies any suicidal thoughts. Perceptions: Patient denies any visual hallucinations and denies any auditory hallucinations Though content/process: [There is no evidence of any delusional thought content and thought process is improving. less Somatically preoccupied Memory and concentration: AOX3, grossly intact for the purposes of this session Judgment and insight: Poor, improving mildly IMPRESSIONS: Bipolar disorder methamphetamine use disorder, severe Nicotine dependance homelessness Legal issues PLAN: -Patient is admitted under voluntary status to MHU for stabilization of psychiatric symptoms and safety. Patient has signed adult voluntary form and medication consent and is placed in patient's chart. -Medications : seroquel 25 mg qhs for mood stabilization, Trazodone 25 mg qhs prn for sleep, increase Lexapro 20 mg daily for depression/anxiety -Ativan and Haldol PRN for agitation/aggression -check cbc with diff tomorrow morning -abx for treatment of suspected uti -NRT -nicotine patch -SW on board for discharge planning. Encourage patient to participate in groups to work on coping skills. hopeful for discharge if patient is improving. she is currently homeless.
--- NOTE | 2024-06-15 07:56 | P.PN ---
Subjective Progress Note Date: 06/15/24 Principal diagnosis: bipolar 1 Methamphetamine abuse Interval history: Patient was seen today for psychiatric follow-up. She was laying in her bed but got up and came readily to talk to me in the office. she has a disheveled appearance. States that her mood and anxiety are still a problem. she denies any side effects from the increase of Lexapro. She is on 20 mg each morning. We discussed what it does and how long it takes it at this point the issue is that she tolerated. she says that she slept well last night she is on small dose of Seroquel and that seems to help. Denying any suicidal homicidal ideations intent or plan. Denying any auditory or visual hallucinations. MENTAL STATUS EXAM: General Appearance: Patient appears to be overweight, disheveled appearance stated age is alert, cooperative]. Patient appears to have fair hygiene and grooming. Tattoos, dressed casually. Behavior: Patient is seated without any agitated behavior.cooperate Speech: Patient's speech is [fluent and nonpressured. Less rambling today Mood/Affect: Patient reports their mood is improving mildly, affect is congruent and constricted, improving mildlyshe smiled and had a good sense of humor Suicidality/Homicidality: Patient denies having any homicidal ideation intent or plan. Denies any suicidal thoughts. Perceptions: Patient denies any visual hallucinations and denies any auditory hallucinations Though content/process: [There is no evidence of any delusional thought content and thought process is improving. Memory and concentration: AOX3, grossly intact for the purposes of this session Judgment and insight: Poor, improving mildly IMPRESSIONS: Bipolar disorder methamphetamine use disorder, severe Nicotine dependance homelessness Legal issues PLAN: -Patient is admitted under voluntary status to MHU for stabilization of psychiatric symptoms and safety. Patient has signed adult voluntary form and medication consent and is placed in patient's chart. -Medications : seroquel 25 mg qhs for mood stabilization, Trazodone 25 mg qhs prn for sleep, continue Lexapro 20 mg daily for depression/anxiety -Ativan and Haldol PRN for agitation/aggression -check cbc with diff tomorrow morning -abx for treatment of suspected uti -NRT -nicotine patch -SW on board for discharge planning. Encourage patient to participate in groups to work on coping skills. hopeful for discharge if patient is improving. she is currently homeless. Objective - Vital Signs Vital signs: Vital Signs Temp 97.6 F 06/15/24 06:48 Pulse 61 06/15/24 06:48 Resp 16 06/15/24 06:48 BP 151/84 06/15/24 06:48 Pulse Ox 96 06/15/24 06:48 FiO2 - Labs CBC & Chem 7: 06/10/24 01:28 06/11/24 12:33
[2024-06-15] MEDS: ESCITALOPRAM 20 MG TAB PO SCH (09:28)
[2024-06-15 12:25] LABS: Basophils # (A) 0.1 k/uL (0-0.2); Basophils % (A) 1 %; Eosinophils # (A) 0.2 k/uL (0-0.7); Eosinophils % (A) 1 %; HCT 44.3 % (34.0-46.0); HGB 14.5 gm/dL (11.4-16.0); Lymphocytes # (A) 2.1 k/uL (1.0-4.8); Lymphocytes % (A) 16 %; MCH 29.6 pg (25.0-35.0); MCHC 32.7 g/dL (31.0-37.0); MCV 90.6 fL (80.0-100.0); Mean Platelet Volume 6.9; Monocytes # (A) 0.5 k/uL (0-1.0); Monocytes % (A) 4 %; Neutrophils # (A) 10.1 k/uL (1.3-7.7); Neutrophils % (A) 76 %; Platelet Count 365 k/uL (150-450); RBC 4.89 m/uL (3.80-5.40); RDW 12.3 % (11.5-15.5); WBC 13.2 k/uL (3.8-10.6)
[2024-06-17 09:09] VITALS: PULSE 89; TEMP 97
[2024-06-17 09:34] VITALS: BP 122/82
--- NOTE | 2024-06-17 13:01 | P.DS ---
Providers Date of admission: 06/10/24 16:49 Expected date of discharge: 06/17/24 Attending physician: Physician Nonstaff Consults: 06/10/24 16:51 Consult Physician Routine Consulting Provider: [facility] Consult Reason/Comments: H&P and medical management Do you want consulting provider notified?: Yes Primary care physician: Stated None Hospital Course: Date of admission: 06/10/24 17:28 Expected date of discharge: 06/17/24 Attending physician: Fred Daniel MD Consults: 06/10/24 16:51 Consult Physician Routine Consulting Provider: [facility] Consult Reason/Comments: H&P and medical Do you want consulting provider notified?: Yes Primary care physician: Stated None - Discharge Diagnosis(es) (1) Bipolar depression Current Visit: Yes Status: Acute Priority: High (2) Methamphetamine abuse Current Visit: Yes Status: Acute Priority: High (3) Nicotine dependence Current Visit: Yes Status: Acute Priority: Low (4) Homelessness Current Visit: Yes Status: Acute Priority: Low Hospital Course: Admission HPI: Admission note was completed by Dr. Daniel: "IDENTIFYING DATA: Patient is a 43 year old female. Currently homeless. Has 4 children, from spouse. Unemployed. HPI: Patient presented to the hospital on yesterday brought in by police on a petition claiming that patient was responding to internal stimuli not taking her medications. Patient was assessed last night by EPS and according to note "Patient agreeable to speak with jingle writer and was resting on stretcher. Patient was brought in on a petition by PD; petition states "Evelyn is responding to stimuli. She is homeless and off her medications. She appears to be hallucinating. Can not care for her basic needs". Patient appeared disheveled and is malodorous. Patient hyperverbal, tangential and at times hard to understand. Patient states she is suicidal "with multiple plans" but will not elaborate on specific plan. Prev attempt in 2017 by overdosing. Patient is open with [facility] but has not been there since January 2024. Patient states "I missed my apmnt because I was in [facility]. I'm bipolar, I'm going through menopause, why can't I just be trash and go on the street, yeah I was pissed at her try to get some rest and be safe, the cats they don't have a litterbox". Patient has flight of ideas but is cooperative. Patient admits to being homeless and "I have a tent I stay in". When jingle writer asked pt if she has been compliant with medication, pt stated "I have meds in my jacket, I have no idea dude". Pt denies access to guns or weapons and states her only support is her mom and brother. Patient states she is on probation but unsure for what or for how long. Patient states she has not slept in 5 days, poor hygiene, poor appetite, poor impulse control, poor insight, poor judgment. Patient admitted to using methamphetamine but was unable to tell me when her last use was "I don't know I didn't want to but it was when all that stuff and all the people". Pt denies health problems, but complains of excoriation near groin from being in wet clothing. Pt denies A/VH, denies HI" patient was admitted to the unit involuntarily, she met with jingle writer today, appears to be disheveled in appearance. States that she is struggling dealing with homelessness. Claims that she has been feeling overwhelmed depressed. She was rambling at times, evasive sometimes incoherent. Was endorsing paranoia towards the police claims that she might want to try to mike them. Claims that she fired her therapist at [facility], was describing having legal issues and going to court. She claims that she has been up for the past 5 days. She did recognize that she is in the right place and wants to take medications to help herself. She was also claiming that she was using recreational drugs including methamphetamine however was fairly guarded and evasive about how much she is using. Also claims that she uses cigarettes. Patient denies any homicidal ideations intent or plan. Did claim that she was feeling suicidal, no specific plan today. At this time patient denies any auditory or visual hallucinations. Patient admits to using methamphetamine and cigarettes as noted above. PAST PSYCHIATRIC HISTORY: Patient has a history of bipolar disorder methamphe tamine use and homelessness. She was last psychiatrically admitted to the mental health unit in December 2023. She was previously on Lamictal, trazodone, Lexapro. She claims that she is apparently been going to [facility] for follow-up. She has had multiple admissions to psychiatric and rehab facilities. She had a suicide attempt in 2017 PMH:As per ER note ALLERGIES: as per EMR CHEMICAL DEPENDENCY HISTORY: as per HPI FAMILY PSYCHIATRIC/SUBSTANCE USE HISTORY: both sides depression and anxiety. SOCIAL HISTORY: Patient was born and raised in [place], [place]. Currently homeless, completed through 11th grade in school. from spouse. Unemployed. Claims an extensive criminal history, starting at 15 years old. MENTAL STATUS EXAM: General Appearance: Patient appears to be overweight, disheveled appearance stated age is alert, directable, and attempts to cooperate]. Patient appears to have fair hygiene and grooming. Tattoos, dressed casually. Behavior: Patient is seated without any agitated behavior. Minimizing drug use, attempts to cooperate Speech: Patient's speech is [fluent and nonpressured. tangential, rambling Mood/Affect: Patient reports their mood is depressed and anxious, affect is congruent Suicidality/Homicidality: Patient denies having any homicidal ideation intent or plan. Did claim that she is having suicidal thoughts, no plan. Perceptions: Patient denies any visual hallucinations and denies any auditory hallucinations Though content/process: [There is no evidence of any delusional thought content and thought process is tangential, rambling. Endorsing some paranoia. Memory and concentration: AOX3, grossly intact for the purposes of this session. Can spell "WORLD" backwards Judgment and insight: Poor" Hospital course: Upon admission to the unit patient was directable and agreeable to commence treatment and signed adult voluntary form. Patient got along well with other patients on the unit and followed unit protocol. Patient was compliant with the medications and denied any side effects throughout hospital course. Patient was started on Seroquel 25 qhs for mood stabilization/depression, Trazodone 25 mg daily at bedtime as needed for sleep/mood, Lexapro 20 mg daily for mood/anxiety. Patient spoke of her stressors and engaged in therapy both group and individual. Patient was also seen by medical team for history and physical exam. Throughout the course of the hospitalization patient gradually improved with regards to mood, anxiety, sleep and returned back to their baseline level of functioning. On the day of discharge patient denied any suicidal or homicidal ideation, intent or plan denied any auditory or visual hallucinations. Patient endorsed wanting to live for her health and family. The patient denied any access to guns or weapons. Patient denied any paranoia and did not endorse any delusions. Patient does have a significant history of substance abuse and was counseled on abstaining from all substances including alcohol and marijuana. Patient was offered however declined inpatient substance-abuse rehab immediately on discharge because she needs to figure out her living situation. She was provided with the information for [facility]. Patient was also counseled on the medications and need for regular compliance and was encouraged to follow-up with their outpatient appointment for mental health and also for primary care. Dontae merritt will be given snf information the for referral. Mental status exam: General Appearance: Patient appears to be mildly overweight. Patient is in no acute distress and has improved hygiene and grooming Behavior: Patient is calmly seated without any agitated behavior. Speech: Patient's speech is fluent and non-pressured. Mood/Affect: Patient reports their mood is "good", affect is congruent and euthymic. Suicidality/Homicidality: Patient denies having any suicidal or homicidal ideation intent or plan. Perceptions: Patient denies any auditory or visual hallucinations. Though content/process: There is no evidence of any delusional thought content and thought process is linear and goal-directed. Memory and concentration: AOX3, grossly intact for the purposes of this session. Judgment and insight: Improved with guarded prognosis Impression: Bipolar depression Methamphetamine abuse Nicotine dependence Homelessness Plan: -Continue with discharge today as patient has improved and stabilized psychiatrically and is not currently an imminent threat to herself and/or others. Patient will remain at chronically elevated risk for harm to self and/or others due to her substance abuse. -Continue medications: Seroquel 25 mg daily at bedtime for mood stabilization/depression, Trazodone 25 mg daily at bedtime when necessary for insomnia, Lexapro 20 mg daily for mood/anxiety. -Patient was counseled on the need for medication compliance and appropriate follow-up at mental health and also primary care for medical issues. Patient verbalized understanding and agreed. -Social work to give patient resources for snf info and also rehab for substance use. Social work also to arrange for patients follow up appointments with [facility] for psychiatric care along with follow up with primary care provider. -Patient counseled on abstaining from recreational drugs and marijuana and alcohol. Was informed/educated on the adverse effects on their physical and mental health. Patient verbally agreed and understood. Patient was offered substance abuse treatment however declined at this time. -Patient was instructed to return to the hospital or seek immediate medical care if their psychiatric or medical symptoms do worsen or reoccur. Laboratory Results WBC 13.2 k/uL (3.8-10.6) H 06/15/24 11:38 RBC 4.89 m/uL (3.80-5.40) 06/15/24 11:38 Hgb 14.5 gm/dL (11.4-16.0) 06/15/24 11:38 Hct 44.3 % (34.0-46.0) 06/15/24 11:38 MCV 90.6 fL (80.0-100.0) 06/15/24 11:38 MCH 29.6 pg (25.0-35.0) 06/15/24 11:38 MCHC 32.7 g/dL (31.0-37.0) 06/15/24 11:38 RDW 12.3 % (11.5-15.5) 06/15/24 11:38 Plt Count 365 k/uL (150-450) 06/15/24 11:38 MPV 6.9 06/15/24 11:38 Neutrophils % 76 % 06/15/24 11:38 Lymphocytes % 16 % 06/15/24 11:38 Monocytes % 4 % 06/15/24 11:38 Eosinophils % 1 % 06/15/24 11:38 Basophils % 1 % 06/15/24 11:38 Neutrophils # 10.1 k/uL (1.3-7.7) H 06/15/24 11:38 Lymphocytes # 2.1 k/uL (1.0-4.8) 06/15/24 11:38 Monocytes # 0.5 k/uL (0-1.0) 06/15/24 11:38 Eosinophils # 0.2 k/uL (0-0.7) 06/15/24 11:38 Basophils # 0.1 k/uL (0-0.2) 06/15/24 11:38 Sodium 140 mmol/L (137-145) 06/11/24 12:33 Potassium 4.6 mmol/L (3.5-5.1) 06/11/24 12:33 Chloride 109 mmol/L (98-107) H 06/11/24 12:33 Carbon Dioxide 27 mmol/L (22-30) 06/11/24 12:33 Anion Gap 4 mmol/L 06/11/24 12:33 BUN 22 mg/dL (7-17) H 06/11/24 12:33 Creatinine 0.68 mg/dL (0.52-1.04) 06/11/24 12:33 Est GFR (CKD-EPI)AfAm >90 (>60 ml/min/1.73 sqM) 06/11/24 12:33 Est GFR (CKD-EPI)NonAf >90 (>60 ml/min/1.73 sqM) 06/11/24 12:33 Glucose 89 mg/dL (74-99) 06/11/24 12:[address] Glu mg/dL 103 mg/dL 06/11/24 12:33 Hemoglobin A1c 5.2 % (<=6.0) 06/11/24 12:33 Calcium 8.8 mg/dL (8.4-10.2) 06/11/24 12:33 Total Bilirubin 0.4 mg/dL (0.2-1.3) 06/11/24 12:33 Conjugated Bilirubin 0.0 mg/dL (0.0-0.3) 06/11/24 12:33 Unconjugated Bilirubin 0.3 mg/dL (0.0-1.1) 06/11/24 12:33 Delta Bilirubin 0.1 mg/dL (0.0-0.2) 06/11/24 12:33 AST 20 U/L (14-36) 06/11/24 12:33 ALT 16 U/L (4-34) 06/11/24 12:33 Alkaline Phosphatase 67 U/L (38-126) 06/11/24 12:33 Total Protein 6.1 g/dL (6.3-8.2) L 06/11/24 12:33 Albumin 3.6 g/dL (3.5-5.0) 06/11/24 12:33 Triglycerides 139.00 mg/dL (0.00-149.00) 06/11/24 12:33 Cholesterol 182.00 mg/dL (0.00-200.00) 06/11/24 12:33 LDL Cholesterol, Calc 96.9 mg/dL (0.0-131.0) 06/11/24 12:33 VLDL Cholesterol, Calc 27.80 mg/dL (5.00-40.00) 06/11/24 12:33 HDL Cholesterol 57.30 mg/dL (40.00-60.00) 06/11/24 12:33 Cholesterol/HDL Ratio 3.18 Ratio 06/11/24 12:33 TSH 0.634 mIU/L (0.465-4.680) 06/11/24 12:33 Urine Color Light Yellow 06/11/24 12:15 Urine Appearance Cloudy (Clear) H 06/11/24 12:15 Urine pH 6.0 (5.0-8.0) 06/11/24 12:15 Ur Specific Filion 1.024 (1.001-1.035) 06/11/24 12:15 Urine Protein Negative (Negative) 06/11/24 12:15 Urine Glucose (UA) Negative (Negative) 06/11/24 12:15 Urine Ketones Negative (Negative) 06/11/24 12:15 Urine Blood Moderate (Negative) H 06/11/24 12:15 Urine Nitrite Negative (Negative) 06/11/24 12:15 Urine Bilirubin Negative (Negative) 06/11/24 12:15 Urine Urobilinogen <2.0 mg/dL (<2.0) 06/11/24 12:15 Ur Leukocyte Esterase Large (Negative) H 06/11/24 12:15 Urine RBC 6 /hpf (0-5) H 06/11/24 12:15 Urine WBC 6 /hpf (0-5) H 06/11/24 12:15 Ur Squamous Epith Cells 5 /hpf (0-4) H 06/11/24 12:15 Urine Bacteria Rare /hpf (None) H 06/11/24 12:15 Hyaline Casts 1 /lpf (0-2) 06/11/24 12:15 Urine Mucus Few /hpf (None) H 06/11/24 12:15 Urine HCG, Qual Not Detected (Not Detectd) 06/10/24 06:10 Salicylates <1.0 mg/dL 06/10/24 01:28 Urine Opiates Screen Not Detected (NotDetected) 06/10/24 06:10 Ur Oxycodone Screen Not Detected (NotDetected) 06/10/24 06:10 Urine Methadone Screen Not Detected (NotDetected) 06/10/24 06:10 Acetaminophen <10.0 ug/mL 06/10/24 01:28 Ur Barbiturates Screen Not Detected (NotDetected) 06/10/24 06:10 U Tricyclic Antidepress Not Detected (NotDetected) 06/10/24 06:10 Ur Phencyclidine Scrn Not Detected (NotDetected) 06/10/24 06:10 Ur Amphetamines Screen Detected (NotDetected) H 06/10/24 06:10 U Methamphetamines Scrn Detected (NotDetected) H 06/10/24 06:10 U Benzodiazepines Scrn Not Detected (NotDetected) 06/10/24 06:10 Urine Cocaine Screen Not Detected (NotDetected) 06/10/24 06:10 U Marijuana (THC) Screen Not Detected (NotDetected) 06/10/24 06:10 Serum Alcohol <10 mg/dL 06/10/24 01:28 Influenza Type A (PCR) Not Detected (Not Detectd) 06/12/24 12:15 Influenza Type B (PCR) Not Detected (Not Detectd) 06/12/24 12:15 RSV (PCR) Not Detected (Not Detectd) 06/12/24 12:15 SARS-CoV-2 (PCR) Not Detected (Not Detectd) 06/12/24 12:15 Vital Signs (72 hours) 06/15/24 06/16/24 06/17/24 06:48 06:47 09:05 Temperature 97.6 F 97.4 F L 97 F L Pulse Rate [ 61 66 89 Right Pulse Oximetery] Respiratory 16 16 Rate Blood Pressure 151/84 144/88 70/40 [Left Arm] Blood Pressure [Right Arm Sitting] Blood Pressure [Right Arm Supine] O2 Sat by Pulse 96 96 99 Oximetry 06/17/24 06/17/24 09:29 09:33 Temperature Pulse Rate [ Right Pulse Oximetery] Respiratory Rate Blood Pressure [Left Arm] Blood Pressure 122/82 [Right Arm Sitting] Blood Pressure 100/72 [Right Arm Supine] O2 Sat by Pulse Oximetry Patient Condition at Discharge: Stable Plan - Discharge Summary New Discharge Prescriptions: New Escitalopram [Lexapro] 20 mg PO DAILY 30 Days #30 tab QUEtiapine [SEROquel] 25 mg PO HS 30 Days #30 tab traZODone HCL [Desyrel] 25 mg PO HS PRN 30 Days #10 tab PRN Reason: Insomnia Discontinued lamoTRIgine [LaMICtal Xr] 25 mg PO HS Discharge Medication List Escitalopram [Lexapro] 20 mg PO DAILY 30 Days #30 tab 06/17/24 [Rx] QUEtiapine [SEROquel] 25 mg PO HS 30 Days #30 tab 06/17/24 [Rx] traZODone HCL [Desyrel] 25 mg PO HS PRN 30 Days #10 tab 06/17/24 [Rx] Follow up Appointment(s)/Referral(s): [facility] [Outside] - 06/27/24 2:00 pm (06/27 @ 14:00 with Gracie Beach 06/29 @ 08:30 Stephanie Clark ) [facility] [NON-STAFF] - 1 Week Activity/Diet/Wound Care/Special Instructions: [facility] Discharge Info Avoid the use of street drugs and alcohol. Take all medications as prescribed. When you are in need of refills on your medications, please contact your outpatient medical provider and/or outpatient psychiatrist. Please go to your scheduled outpatient appointments for aftercare treatment. If symptoms return or become worse, call the crisis line at or and/or visit the nearest emergency room for assistance. National Suicide and Crisis Lifeline - call or text 538 Discharge Disposition: HOME SELF-CARE
--- NOTE | 2024-06-17 20:41 | P.PN ---
Progress Note - Text Progress Note Date: 06/16/24 Interval history: Patient was seen on 06/16/24 via HIPAA compliant telehealth with staff present in the conference room. She reports mood is "good", denies SI/HI. She reports sleep and appetite are good/"ok". She denies SI/HI, intent or plan. She denies AVH or paranoia. She is homeless. She states she may have her mom try to take her to her friend's house in [place]. She inquires about discharge today however she does not currently have a safe discharge plan. MENTAL STATUS EXAM: General Appearance: Patient appears to be overweight, fair hygiene and grooming, dressed casually. Behavior: Patient is seated without any agitated behavior, attempts to cooperate Speech: Patient's speech is fluent and nonpressured. Mood/Affect: Patient reports their mood is good, affect is congruent and constricted, improving mildly Suicidality/Homicidality: Patient denies having any homicidal ideation intent or plan. Denies any suicidal thoughts. Perceptions: Patient denies any visual hallucinations and denies any auditory hallucinations Though content/process: There is no evidence of any delusional thought content and thought process is improving. Memory and concentration: AOX3, grossly intact for the purposes of this session Judgment and insight: Poor, improving mildly IMPRESSIONS: Bipolar disorder methamphetamine use disorder, severe Nicotine dependance homelessness Legal issues PLAN: -Patient is admitted under voluntary status to [facility] for stabilization of psychiatric symptoms and safety. Patient has signed adult voluntary form and medication consent and is placed in patient's chart. -Medications: Seroquel 25 mg qhs for mood stabilization, Trazodone 25 mg qhs prn for sleep, continue Lexapro 20 mg daily for depression/anxiety -Ativan and Haldol PRN for agitation/aggression -NRT -nicotine patch - on board for discharge planning. Encourage patient to participate in groups to work on coping skills. Hopeful for discharge Thursday if patient is improving and has safe discharge plan. She is currently homeless.
== END 2024-06-17 14:03 | disposition home or self-care (01) | DRG 885 ==
LOC: EC 21:55 → 3MHU 06-10 16:49
PROVIDERS: ADMIT Psychiatry & Neurology Psychiatry; ATTEND Psychiatry & Neurology Psychiatry
DX: F31.9 Bipolar disorder, unspecified (principal); F15.20 Other stimulant dependence, uncomplicated; N39.0 Urinary tract infection, site not specified; R45.851 Suicidal ideations; F17.210 Nicotine dependence, cigarettes, uncomplicated; L30.4 Erythema intertrigo; F19.10 Other psychoactive substance abuse, uncomplicated; F41.9 Anxiety disorder, unspecified; F43.10 Post-traumatic stress disorder, unspecified; G47.00 Insomnia, unspecified; Z59.00 Homelessness unspecified; Z65.3 Problems related to other legal circumstances; Z79.899 Other long term (current) drug therapy
CPT/HCPCS: 36415; 80048; 80053; 80061; 80076; 80143; 80179; 80306; 80320; 81001; 81025; 82075; 83036; 84443; 85025; 87635; 87636; 99285